=== PATIENT | female | born 1960 | race Hispanic/Latino ===

== ENCOUNTER 2021-10-23 10:57 | Emergency (ER) | payer SELFPAY ==
--- OUTSIDE RECORDS SUMMARY | 2021-10-23 11:01 | XMS REPORT | Continuity of Care Document ---
:1960 Author Organization [facility] t Address [address] [place] [address] Care Team Providers Name Role Phone PCP, PATIENT DOES NOT HAVE A Primary Care Physician UnavailHermelindo Lee DO Attending Clinician Farheen FERNANDEZ R Attending Clinician Zuleima PORTILLO Attending Clinician Unavailable Doctor Unassigned, Name Attending Clinician Unavailable Severo CATALAN Attending Clinician Unavailable Hossein QUIROZP, N Attending Clinician Severo CATALAN Admitting Clinician Unavailable Advance Directives Directive Decision Effective Termination Comments Source Date Date Healthcare Agents on N/A [facility] FileNameRelationshipHealthcare [facility] Agent Medical RelationshipCommunicationZoila Branch [facility] Care [phone] (Mobile) Sarah Dowell ContactFirst [facility] [phone] (Mobile) [email or web address] ToñitoChildSebal [facility] Care [phone] (Mobile) Problems Condition Condition Condition Status Onset Resolution Last Treating Co mments Source Name Details Category Date Date Treatment Clinician Date Class 1 Class 1 Disease Active 2019-08 Univers obesity obesity 1-23 [place] mass [place] mass index 00 [place] dical (BMI) of (BMI) of Branch 33.0 to 33.0 to 33.9 in 33.9 in adult, adult, unspecifie unspecifie d obesity d obesity type, type, unspecifie unspecifie d whether d whether serious serious comorbidit comorbidit y present y present Encounter Encounter Disease Active 2019-08 Uni vers for for 09-18 [place] of surve[place] ce of 00 Medical contracept contracept Br anch fidencio, fidencio, unspecifie unspecifie d d contracept contracept shalini shalini Postmenopa Postmenopa Disease Active U nivers use use 05-05 ity of 00:00: [place] 00 Medical Branch Essential Essential Disease Active Uni vers hypertensi hypertensi 3-15 it y of on, benign [place], benign [place] Encounter Encounter Disease Active 2013-08 Overview: Univers for other for other 09-04 ICD10 ity of general general 00:00: Diagnosis [place] counseling counseling 00 Term Me dical or advice or advice Family Caseworker Br anch on on Utility contracept contracept ion ion History of History of Disease Active 2013-08 U nivers depression depression 09-04 it y of 00:00: [place] 00 Medical Branch Obesity Obesity Disease Active Overview: Univ ers (BMI (BMI 8-14 ICD10 ity of 30-39.9) 30-39.9) 00:00: Diagnosis [place] 00 Term Medical Family Caseworker Branch Utility Tubal Tubal Disease Active Univers ligation ligation 8-13 ity of status status 00:00: [place] 00 Medical Branch Well woman Well woman Disease Active Overview : Univers exam (no exam (no 8-13 ICD10 ity of gynecologi gynecologi 00:00: Diagnosis [place] dasha exam) dasha exam) 00 Term Medi dasha Family Caseworker Branch Utility History of History of Disease Active U aleshia bilateral bilateral 8-13 ity of tubal tubal 00:00: [place] ligation ligation 00 Medica l Branch Well woman Well woman Disease Active Overview : Univers exam exam 8-13 ICD10 ity of 00:00: Diagnosis [place] 00 Term Medical Family Caseworker Branch Utility Allergies, Adverse Reactions, Alerts Allergy Allergy Status Severity Reaction(s) Onset Inactive Treating Comm ents Source Name Type Date Date Clinician NO KNOWN Drug Active Univers ALLERGIE Class ity of S [place] Medical [facility] Social History Social Habit Start Date Stop Date Quantity Comments Source Exposure to Not sure [facility] SARS-CoV-2 [place] Medical (event) Branch Tobacco use and 2020-08-31 2020-08-31 Never used Universit y of exposure 00:00:00 00:00:00 [facility] Branch Alcohol intake 2020-08-31 2020-08-31 Current University of 00:00:00 00:00:00 non-drinker of [facility] alcohol Branch (finding) Sex Ass[birth year] At [birth year] Universit y of 00:00:00 00:00:00 [facility] Smoking Status Start Date Stop Date Source Never smoker [facility] [place] Medications Ordered Filled Start Stop Current Ordering Indication Dosage Frequency Signature Comments Components Source Medication Medication Date Date Medication? Clinician (SIG) Name Name codeine-gua 2020-0 Yes [id number] 5mL Take 5 mL Univers ifenesin 1-03 by mouth ity of 10-100 mg/5 00:00: every 6 [place] as mL solution 00 (six) Medical hours as Branch needed for Cough. codeine-gua 2020-0 2020- No [id number] 5mL Take 5 mL Univers ifenesin 1-03 11-23 by mouth ity of 10-100 mg/5 00:00: 00:00 [place] 6 [place] mL solution 00 :00 (six) Medical hours as Branch needed for Cough. codeine-gua 2020-0 2020- No [id number] 5mL Take 5 mL Univers ifenesin 1-03 11-23 by mouth ity of 10-100 mg/5 00:00: 00:00 [place] 6 [place] mL solution 00 :00 (six) Medical hours as Branch needed for Cough. aspirin 325 2018- 2019- No 325mg Take 325 Univers mg tablet 05-05- mg by ity of 21:20: 00:00 mouth [place] 24 :00 daily. Medical Branch aspirin 325 2018- 2019- No 325mg Take 325 Univers mg tablet 05-05- mg by ity of 21:20: 00:00 mouth [place] 24 :00 daily. Medical Branch aspirin 325 2018- 2019- No 325mg Take 325 Univers mg tablet 05-05- mg by ity of 21:20: 00:00 mouth [place] 24 :00 daily. Medical Branch aspirin 325 2019- No 325mg Take 325 Univers mg tablet 05-05 mg by ity of 21:20: 00:00 mouth [place] 24 :00 daily. Medical Branch amLODIPine 2019- No 5mg Take 5 mg U nivers 5 mg tablet 05-05 by mouth ity of 21:20: 00:00 daily. [place] 21 :00 Medical Branch amLODIPine 2018- No 5mg Take 5 mg U nivers 5 mg tablet 05-05 by mouth ity of 21:20: 00:00 daily. [place] 21 :00 Medical Branch amLODIPine 2019- No 5mg Take 5 mg U nivers 5 mg tablet 05-05 by mouth ity of 21:20: 00:00 daily. [place] 21 :00 Medical Branch amLODIPine 2018- No 5mg Take 5 mg U nivers 5 mg tablet 05-05 by mouth ity of 21:20: 00:00 daily. [place] 21 :00 Medical Branch albuterol 2018- No USE 1 VIAL U nivers 2.5 mg /3 04-07 IN ity of mL (0.083 00:00: 00:00 [place]ULIZER [place] 00 :00 EVERY 8 Medical nebulizer HOURS Branch solution NEEDED albuterol 2018- No USE 1 VIAL U nivers 2.5 mg /3 04-07 IN ity of mL (0.083 00:00: 00:00 [place]IZER [place] 00 :00 EVERY 8 Medical nebulizer HOURS Branch solution NEEDED albuterol 2018- No USE 1 VIAL U nivers 2.5 mg /3 04-07 IN ity of mL (0.083 00:00: 00:00 [place]IZ[place] 00 :00 EVERY 8 Medical nebulizer HOURS Branch solution NEEDED albuterol 2018- No USE 1 VIAL U nivers 2.5 mg /3 04-07 IN ity of mL (0.083 00:00: 00:00 [place]IZER [place] 00 :00 EVERY 8 Medical nebulizer HOURS Branch solution NEEDED aspirin 325 2017- Yes 325mg Take 325 U nivers mg tablet 7-09 mg by ity of 16:35: mouth [place] 52 daily. Medical Branch amLODIPine 2017- Yes 5mg Take 5 mg Un shyann 5 mg tablet 7-09 by mouth ity of 16:35: daily. [place] 52 Medical Branch traMADOL Yes 50mg Take 1 Univers (ULTRAM) 50 9-16 tablet by ity of mg tablet 00:00: mouth [place] 00 every 6 Medical (six) Branch hours as needed for Pain (scale 4-6). traMADOL 2018- No 50mg Take 1 Univer s (ULTRAM) 50 05-12 tablet by it y of mg tablet 00:00: 00:00 mouth [place] 00 :00 every 6 Medical (six) Branch hours as needed for Pain (scale 4-6). traMADOL 2018- No 50mg Take 1 Univer s (ULTRAM) 50 05-12 tablet by it y of mg tablet 00:00: 00:00 mouth [place] 00 :00 every 6 Medical (six) Branch hours as needed for Pain (scale 4-6). traMADOL 2018- No 50mg Take 1 Univer s (ULTRAM) 50 05-12 tablet by it y of mg tablet 00:00: 00:00 mouth [place] 00 :00 every 6 Medical (six) Branch hours as needed for Pain (scale 4-6). traMADOL 2018- No 50mg Take 1 Univer s (ULTRAM) 50 05-12 tablet by it y of mg tablet 00:00: 00:00 mouth [place] 00 :00 every 6 Medical (six) Branch hours as needed for Pain (scale 4-6). No known No Univers medications [facility] No known No Univers medications [facility] Immunizations Ordered Filled Immunization Date Status Comments [facility] e Immunization Name Name Td 2009-10-28 Completed University of 00:00:00 [facility] Tdap 2009-10-28 Completed University of 00:00:00 [facility] Tdap 2009-10-28 Completed University of 00:00:00 [facility] Tdap 2009-10-28 Completed University of 00:00:00 [facility] Tdap 2009-10-28 Completed University of 00:00:00 [facility] TDAP 2009-10-28 Completed University of 00:00:00 [facility] TDAP 2009-10-28 Completed University of 00:00:00 [place] [facility] TDAP 2009-10-28 Completed University of 00:00:00 [place] [facility] TDAP 2009-10-28 Completed University of 00:00:00 [place] [facility] TDAP 2009-10-28 Completed University of 00:00:00 [facility] Vital Signs Vital Name Observation Time Observation Value Comments Source Systolic blood 2020-07-19 15:45:00 132 mm[Hg] Univer sity of pressure [facility] Diastolic blood 2020-07-19 15:45:00 74 mm[Hg] Unive rsity of pressure [facility] Heart rate 2020-07-19 15:45:00 56 /min Universi ty of [facility] Body temperature 2020-07-19 15:45:00 36.44 Amy Univ ersity of [facility] Respiratory rate 2020-07-19 15:45:00 16 /min Univ ersity of [facility] Body height 2020-07-19 15:45:00 157.5 cm Universi ty of [place] [facility] [place] Body weight 2020-07-19 15:45:00 82.101 kg Universi ty of [place] [facility] BMI 2020-07-19 15:45:00 33.11 kg/m2 Universi ty of [place] [facility] Systolic blood 2019-05-05 21:01:00 133 mm[Hg] Univer sity of pressure [place] [facility] Diastolic blood 2019-05-05 21:01:00 70 mm[Hg] Unive rsity of pressure [facility] Heart rate 2019-05-05 21:01:00 68 /min Universi ty of [place] [facility] [place] Body temperature 2019-05-05 21:01:00 36.22 Amy Univ ersity of [place] [facility] Respiratory rate 2019-05-05 21:01:00 16 /min Univ ersity of [facility] Body height 2019-05-05 21:01:00 157.5 cm Universi ty of [place] [facility] Body weight 2019-05-05 21:01:00 81.761 kg Universi ty of [place] [facility] BMI 2019-05-05 21:01:00 32.97 kg/m2 Universi ty of [place] [facility] Procedures Procedure Date / Time Performed Performing Clinician Sour e ASSIGNMENT OF BENEFITS 2020-07-19 15:05:35 Doctor Unassigned, No [facility] Name Medical Branch ASSIGNMENT OF BENEFITS 2019-05-05 20:29:32 Doctor Unassigned, No [facility] Encounters Start End Encounter Admission Attending Care Care Encounter Source Date/Time Date/Time Type Type Clinicians Facility Department ID 2020-11-06 2020-11-06 Patient Khang [facility] [id number] Univers 00:00:00 00:00:00 Outreach Patrick PRIMARY [id number] i ty of [facility] [id number] [place] [phone] Ak dical [address] [place] 2020-08-31 2020-08-31 [facility] [id number] Univers 06:39:30 23:59:00 Encounter Esteban Dewey SPECIALTY [id number] ity of [facility] [id number] [place] [id number] Ak dical VICTORY 8[address] [facility] 2020-08-31 2020-08-31 Outpatient Zuleima PORTILLO [facility] [id number] Univers 15:15:00 15:15:00 ESTEBAN [id number] itrishi o [facility] 2020-08-31 2020-08-31 Outpatient Zuleima PORTILLO [facility] [id number] Univers 00:00:00 00:00:00 ESTEBAN ity o f [facility] 2020-07-19 2020-07-19 [facility] [id number] Univers 09:29:07 10:20:55 Visit Esteban Dewey CASE WORK AIDE [id number] ity of REGIONAL [id number] [place] as MATERNAL [id number] Med ical & CHILD [address] [place] [address] 2020-07-19 2020-07-19 Outpatient Zuleima PORTILLO [facility] [id number] Univers 09:45:00 09:45:00 ESTEBAN ity o f [facility] 2020-07-19 2020-07-19 Outpatient R [facility] [id number] Univers 09:15:00 09:15:00 [id number] ity of [facility] 2020-07-19 2020-07-19 Outpatient R FARHEEN [facility] [id number] Univers 09:15:00 09:15:00 ESTEBAN dykes o f [facility] 2020-07-19 2020-07-19 Orders Doctor OTONIEL [id number] Univers 00:00:00 00:00:00 Only Unassigned, MARK [id number] ity of [facility] [id number] [place] [phone] [address] 2019-08-29 2019-08-29 Emergency [facility] [id number] Univers 13:54:14 15:19:00 LEIGHA dykes [facility] 2019-05-05 2019-05-05 Office [facility] [id number] Univers 15:51:30 16:06:30 Visit Effie Angulo CASE WORK AIDE [id number] it y of REGIONAL [id number] [place] MATERNAL [id number] Med ical & CHILD [address] [place] [address] 2019-05-05 2019-05-05 Orders Doctor OTONIEL [id number] Univers 00:00:00 00:00:00 Only Unassigned, MARK [id number] ity of [facility] [id number] [place] [phone] [address] Results This patient has no known results.
[2021-10-23] MEDS ORDERED: BENZONATATE 100 MG CAP PO ONE (11:25)
[2021-10-23] MEDS ORDERED: ACETAMINOPHEN 500 MG TAB ONE (11:25)
--- NOTE | 2021-10-23 11:55 | RAD REPORT ---
EXAM DESCRIPTION: RAD - Chest Single View - 10/23/2021 11:46 am CLINICAL HISTORY: cough sob COMPARISON: Chest Single View dated 09/28/2017 FINDINGS: Lines: None. Lungs: No evidence of edema or pneumonia. Pleural: No significant pleural effusions or pneumothorax. Cardiac: The heart size is within normal limits. Bones: No acute fractures. Other: IMPRESSION: No acute cardiopulmonary disease.
[2021-10-23 12:55] LABS: SARS-COV-2 RT PCR NEGATIVE (NEGATIVE)
--- NOTE | 2021-10-23 13:01 | ER ---
Nurse's Notes [facility] Name: Holly Leggett Age: 61 yrs Sex: Female : 1960 Arrival Date: 10/23/2021 Time: 11:00 Bed 6 Private MD: Diagnosis: Acute bronchitis, unspecified;Cough Presentation: 10/23 11:05 Chief complaint: Patient states: Cough and sore throat since last night. No fever. ll1 Coronavirus screen: Vaccine status: Patient reports receiving the 2nd dose of the covid vaccine. Client denies travel out of the [place] in the last 14 days. cough unrelated to allergies, sore throat, Client presents with at least one sign or symptom that may indicate coronavirus-19. Standard/surgical mask placed on the client. Ebola Screen: Patient denies travel to an Ebola-affected area in the 21 days before illness onset. Initial Sepsis Screen: Does the patient meet any 2 criteria? HR > 90 bpm. Yes Does the patient have a suspected source of infection? Yes: Productive cough/pneumonia. Risk Assessment: Do you want to hurt yourself or someone else? Patient reports no desire to harm self or others. Onset of symptoms was October 22, 2021. 11:05 Method Of Arrival: Ambulatory 1 11:05 Acuity: ANDRIY 4 ll1 Triage Assessment: 11:06 General: Appears in no apparent distress. Behavior is calm, cooperative, appropriate ll1 for age. Pain: Denies pain. EENT: Reports pain when swallowing. Neuro: No deficits noted. Cardiovascular: No deficits noted. Respiratory: Reports cough that is the patient has mild shortness of breath. Historical: - Allergies: 11:06 No Known Allergies; ll1 - PMHx: 11:06 Hypertension; ll1 - PSHx: 11:06 None; ll1 - Immunization history:: Client reports receiving the 2nd dose of the Covid vaccine. - Social history:: Smoking status: Patient denies any tobacco usage or history of. Screenin:25 Abuse screen: Denies threats or abuse. Denies injuries from another. Nutritional ph screening: No deficits noted. Tuberculosis screening: No symptoms or risk factors identified. Fall Risk None identified. Assessment: 11:25 General: Appears in no apparent distress. comfortable, well groomed, Behavior is calm, ph cooperative, appropriate for age, Reports fever for 12-24 hours. Pain: Complains of pain in throat. Neuro: Level of Consciousness is awake, alert, obeys commands, Oriented to person, place, time, situation. Cardiovascular: No deficits noted. Respiratory: Reports cough that is Airway is patent Respiratory effort is even, unlabored, Respiratory pattern is regular, symmetrical. GI: No signs and/or symptoms were reported involving the gastrointestinal system. EENT: Throat is reddened Reports nasal congestion pain when swallowing. Derm: Skin is intact, is healthy with good turgor, Skin is pink, warm \T\ dry. 12:30 Reassessment: Patient appears in no apparent distress at this time. No changes from ww previously documented assessment. Patient and/or family updated on plan of care and expected duration. Pain level reassessed. Patient is alert, oriented x 3, equal unlabored respirations, skin warm/dry/pink. 13:16 Respiratory: ww Vital Signs: 11:05 Weight 82.55 kg; Height 5 ft. 2 in. (157.48 cm); Pain 0/10; ll1 11:13 BP 172 / 88; Pulse 106; Resp 20; Temp 100.9; Pulse Ox 99% ; cs9 12:37 BP 160 / 80; Pulse 95; Resp 18; Temp 99.0; Pulse Ox 92% on R/A; ph 11:05 Body Mass Index 33.29 (82.55 kg, 157.48 cm) ll1 ED Course: 11:00 Patient arrived in ED. mr 11:05 Benigno Miller MD is Attending Physician. [id number] 11:05 Arm band placed on Patient placed in an exam room, on a stretcher. ll1 11:06 Triage completed. ll1 11:24 COVID-19/FLU A+B Sent. jmm 11:25 Patient has correct armband on for positive identification. Bed in low position. Call ph light in reach. Side rails up X 1. cloth bleaching range tender on. Pulse ox on. NIBP on. Door closed. Noise minimized. Warm blanket given. 11:46 Chest Single View In Process Unspecified. EDMS 12:36 Mansi Grace, RN is Primary Nurse. ph 12:46 No provider procedures requiring assistance completed. ph 13:16 Patient did not have IV access during this emergency room visit. ww Administered Medications: 11:24 Drug: Tylenol 1000 mg Route: PO; ph 12:37 Follow up: Response: No adverse reaction ph 11:25 Drug: Tessalon Perle (benzonatate) 200 mg Route: PO; ph 12:36 Follow up: Response: No adverse reaction ph Outcome: 13:00 Discharge ordered by MD. holland 13:15 Discharged to home ambulatory, with family. ww 13:15 Condition: stable 13:15 Discharge instructions given to patient, family, Instructed on discharge instructions, follow up and referral plans. medication usage, safety practices, Demonstrated understanding of instructions, follow-up care, medications, Prescriptions given X 2. 13:16 Patient left the ED. ww Signatures: Dispatcher [employer] EDMS Matthias Diane PA PA jmm Rivera, Kathy mr GraceMansi RN RN ph Lewis, Lynsay, RN RN ll1 Mai Maurer Whitney, RN RN ww Benigno Miller MD MD [email or web address] Corrections: (The following items were deleted from the chart) 11:22 11:05 Ebola Screen: Patient denies travel to an Ebola-affected area in the 21 days ll1 before illness onset. 1 11:22 11:05 Initial Sepsis Screen: Does the patient meet any 2 criteria? No. Patient's ll1 initial sepsis screen is negative. Does the patient have a suspected source of infection? Yes: Productive cough/pneumonia 1
--- NOTE | 2021-10-23 13:01 | EDPHYS ---
Physician Documentation [facility] Name: Holly Leggett Age: 61 yrs Sex: Female : 1960 Arrival Date: 10/23/2021 Time: 11:00 Bed 6 Private MD: ED Physician Benigno Miller HPI: 10/23 11:43 This 61 yrs old Female presents to ER via Ambulatory with complaints of Cough, jr11 Sore Throat. 11:43 The patient or guardian reports cough, that is intermittent, described as moderate. jr11 Onset: The symptoms/episode began/occurred yesterday. Severity of symptoms: At their worst the symptoms were moderate, in the emergency department the symptoms are actually worse. Modifying factors: The symptoms are alleviated by nothing, the symptoms are aggravated by exertion. Associated signs and symptoms: Pertinent positives: fever, rhinorrhea, sore throat, Pertinent negatives: chest pain. no urinary complaints, no changes in BMs. Historical: - Allergies: 11:06 No Known Allergies; ll1 - PMHx: 11:06 Hypertension; ll1 - PSHx: 11:06 None; ll1 - Immunization history:: Client reports receiving the 2nd dose of the Covid vaccine. - Social history:: Smoking status: Patient denies any tobacco usage or history of. ROS: 11:43 Eyes: Negative for injury, pain, redness, and discharge, Neck: Negative for injury, jr11 pain, and swelling, Cardiovascular: Negative for chest pain, palpitations, and edema, Abdomen/GI: Negative for abdominal pain, nausea, vomiting Back: Negative for injury and pain, : Negative for injury, bleeding, discharge, and swelling, MS/Extremity: Negative for injury and deformity, Skin: Negative for injury, rash, and discoloration, Neuro: Negative for headache, weakness, numbness, tingling, and seizure. 11:43 All other systems are negative. Exam: 11:43 Constitutional: This is a well developed, well nourished patient who is awake, alert, jr11 and in no acute distress. Head/Face: Normocephalic, atraumatic. Eyes: Extra-ocular motions intact. Lids and lashes normal. Conjunctiva and sclera are non-icteric and not injected. Cornea within normal limits. Periorbital areas with no swelling, redness, or edema. Neck: Trachea midline, no thyromegaly or masses palpated, and no cervical lymphadenopathy. Supple, full range of motion without nuchal rigidity, or vertebral point tenderness. No Meningismus. Chest/axilla: Normal chest wall appearance and motion. Nontender with no deformity. No lesions are appreciated. Cardiovascular: Regular rate and rhythm with a normal S1 and S2. No gallops, murmurs, or rubs. Normal PMI, no JVD. No pulse deficits. Respiratory: Lungs have equal breath sounds bilaterally, clear to auscultation and percussion. No rales, rhonchi or wheezes noted. No increased work of breathing, no retractions or nasal flaring. Abdomen/GI: Soft, non-tender, with normal bowel sounds. No distension or tympany. No guarding or rebound. No evidence of tenderness throughout. Skin: Warm, dry with normal turgor. Normal color with no rashes, no lesions, and no evidence of cellulitis. MS/ Extremity: Pulses equal, no cyanosis. Neurovascular intact. Full, normal range of motion. Neuro: Awake and alert, GCS 15, oriented to person, place, time, and situation. No gross motor or sensory deficits. 11:43 ENT: +posterior drip, boggy nasal mucosa. Vital Signs: 11:05 Weight 82.55 kg; Height 5 ft. 2 in. (157.48 cm); Pain 0/10; ll1 11:13 BP 172 / 88; Pulse 106; Resp 20; Temp 100.9; Pulse Ox 99% ; cs9 12:37 BP 160 / 80; Pulse 95; Resp 18; Temp 99.0; Pulse Ox 92% on R/A; ph 11:05 Body Mass Index 33.29 (82.55 kg, 157.48 cm) ll1 MDM: 11:15 Patient medically screened. jr11 11:43 Differential Diagnosis: Bronchitis Upper Respiratory Infection Pharyngitis Viral jr11 Syndrome Pneumonia. Data reviewed: vital signs, nurses notes, radiologic studies, plain films. 12:59 ED course: No distress, given productive cough concern for atypical PNA, bronchitis, jr11 will rx azithro and tessalon, ER warnings given. 10/23 11:17 Order name: COVID-19/FLU A+B; Complete Time: 12:56 EDMS 10/23 12:56 Interpretation: Within normal limits. jr11 10/23 11:17 Order name: Chest Single View; Complete Time: 12:32 EDMS Administered Medications: 11:24 Drug: Tylenol 1000 mg Route: PO; ph 12:37 Follow up: Response: No adverse reaction ph 11:25 Drug: Tessalon Perle (benzonatate) 200 mg Route: PO; ph 12:36 Follow up: Response: No adverse reaction ph Disposition Summary: 10/23/21 13:00 Discharge Ordered Location: Home jr Condition: Stable jr11 Diagnosis - Acute bronchitis, unspecified jr11 - Cough jr11 Followup: jr11 - With: Private Physician - When: 1 - 2 days - Reason: Re-evaluation by your physician Discharge Instructions: - Discharge Summary Sheet jr11 - Acute Bronchitis, Adult jr11 Forms: - Medication Reconciliation Form jr11 - Work release form ww - Thank You Letter jr11 - Antibiotic Education jr11 - Prescription Opioid Use jr11 Prescriptions: - Tessalon Perles 100 mg Oral Capsule - take 1 capsule by ORAL route every 8 hours As needed; 15 capsule; Refills: 0, jr11 Product Selection Permitted - Zithromax Z-Karl 250 mg Oral Tablet - take 1 tablet by ORAL route as directed for 5 days Day 1 - take two (2) tablets jr11 one time. Day 2, 3, 4 , 5 take one (1) tablet once daily.; 6 tablet; Refills: 0, Product Selection Permitted Signatures: Dispatcher [employer] Mansi Bobby RN RN ph Lewis, Lynsay, RN RN ll1 Benigno Miller MD MD jr11
== END 2021-10-23 13:16 | disposition home or self-care (01) ==
LOC: ER 10:57
DX: J20.9 Acute bronchitis, unspecified (principal); Z20.822 Contact with and (suspected) exposure to COVID-19; I10 Essential (primary) hypertension
CPT/HCPCS: 0240U; 71045; 99284

== ENCOUNTER 2022-01-18 13:40 | Inpatient (IN) | payer SELFPAY ==
--- OUTSIDE RECORDS SUMMARY | 2022-01-18 13:43 | XMS REPORT | Continuity of Care Document ---
:1960 Author Organization [facility] t Address [address] [place] [address] Care Team Providers Name Role Phone PCP, PATIENT DOES NOT HAVE A Primary Care Physician Unavaila Hermelindo Deal DO Attending Clinician Farheen FERNANDEZ R Attending Clinician Zuleima ZHONG Attending Clinician Unavailable Doctor Unassigned, Name Attending Clinician Unavailable Severo CATALAN Attending Clinician Unavailable Hossein FERNANDEZ, N Attending Clinician Severo CATALAN Admitting Clinician Unavailable Problems Condition Condition Condition Status Onset Resolution Last Treating Co mments Source Name Details Category Date Date Treatment Clinician Date Class 1 Class 1 Disease Active 2019-08 Univers obesity obesity 09-18 ity of with body with body 00:00: [...] [place] ce of Medical contracept contracept Br anch fidencio, fidencio, [...] Term Me dical or advice or advice [place] Br anch on on Utility contracept contracept ion ion History of History of Disease Active 2013-08 U nivers depression depression 09-04 it y of 00:00: [place] 00 Medical Branch Obesity Obesity Disease Active Overview: Univ ers (BMI (BMI 8-14 ICD10 ity of 30-39.9) 30-39.9) 00:00: Diagnosis [place] 00 Term Medical [place] Branch Utility Tubal Tubal Disease Active Univers ligation ligation 8-13 ity of status status 00:00: [place] 00 [facility] Well woman Well woman Disease Active Overview : Univers exam (no exam (no 8-13 ICD10 ity of gynecologi gynecologi 00:00: Diagnosis [place] dasha exam) dasha exam) 00 Term Medi dasha [place] Branch Utility History of History of Disease Active U nivers bilateral bilateral 8-13 ity of tubal tubal 00:00: [place] ligation ligation 00 Medica l Branch Well woman Well woman Disease Active Overview : Univers exam exam 8-13 ICD10 ity of 00:00: Diagnosis [place] 00 Term Medical [place] Branch Utility Allergies, Adverse Reactions, Alerts Allergy Allergy Status Severity Reaction(s) Onset Inactive Treating Comm ents Source Name Type Date Date Clinician NO KNOWN Drug Active Univers ALLERGIE Class ity of S [facility] Social History Social Habit Start Date Stop Date Quantity Comments Source Exposure to Not sure [facility] SARS-CoV-2 [place] Medical (event) Branch Tobacco use and 2020-08-31 2020-08-31 Never used Universit y of exposure 00:00:00 00:00:00 [facility] Alcohol intake 2020-08-31 2020-08-31 Current University of 00:00:00 00:00:00 non-drinker of [facility] alcohol Branch (finding) Sex Assigned At [birth year] Universit y of 00:00:00 00:00:00 [facility] Smoking Status Start Date Stop Date Source Never smoker [facility] Branch Medications Ordered Filled Start Stop Current Ordering Indication Dosage Frequency Signature Comments Components Source Medication Medication Date Date Medication? Clinician (SIG) Name Name tiffanie 2020-0 Yes [id number] 5mL Take 5 mL Univers ifenesin 1-03 by mouth ity of 10-100 mg/5 00:00: every 6 [place] as mL solution 00 (six) Medical hours as Branch needed for Cough. dreada 2020-0 2020- No [id number] 5mL Take 5 mL Univers ifenesin 1-03 11-23 by mouth ity of 10-100 mg/5 00:00[place] 00:00 [place] 6 [place] mL solution 00 :00 (six) Medical hours as Branch needed for Cough. dreada 2019-0 2020- No [id number] 5mL Take 5 mL Univers ifenesin 1-03 11-23 by mouth ity of 10-100 mg/5 00:00: 00:00 [place] 6 [place] mL solution 00 :00 (six) Medical hours as Branch needed for Cough. aspirin 325 2019- No 325mg Take 325 Univers mg tablet 05-05- mg by ity of 21:20: 00:00 mouth [place] 24 :00 daily. Medical Branch aspirin 325 2019- No 325mg Take 325 Univers mg tablet 05-05- mg by ity of 21:20: 00:00 mouth [place] 24 :00 daily. Medical Branch aspirin 325 2019- No 325mg Take 325 Univers mg tablet 05-05- mg by ity of 21:20: 00:00 [facility] 24 :00 daily. Medical Branch aspirin 325 2019- No 325mg Take 325 Univers mg tablet 05-05- mg by ity of 21:20: 00:00 mouth [place] 24 :00 daily. Medical Branch amLODIPine 2019- No 5mg Take 5 mg U nivers 5 mg tablet 05-05 by mouth ity of 21:20: 00:00 daily. [place] 21 :00 Medical Branch amLODIPine 2019- No 5mg Take 5 mg U nivers 5 mg tablet 05-05 by mouth ity of 21:20: 00:00 daily. [place] 21 :00 Medical Branch amLODIPine 2019-0 2019- No 5mg Take 5 mg U nivers 5 mg tablet 05-05 by mouth ity of 21:20: 00:00 daily. [place] 21 :00 Medical Branch amLODIPine 2018- No 5mg Take 5 mg U nivers 5 mg tablet 05-05 by mouth ity of 21:20: 00:00 daily. [place] 21 :00 Medical Branch albuterol 2018- No [...] nebulizer HOURS Branch solution NEEDED aspirin 325 Yes 325mg Take 325 U nivers mg tablet 7-09 mg by ity of 16:35: mouth [place] [address] daily. Medical Branch amLODIPine Yes 5mg Take 5 mg Un shyann 5 mg tablet -09 by mouth ity of 16:35: daily. [place] 52 Medical Branch traMADOL Yes 50mg Take 1 Univers (ULTRAM) 50 9-16 tablet by ity of mg tablet 00:00: mouth [place] 00 every 6 Medical (six) Branch hours as needed for Pain (scale 4-6). traMADOL 2019- No 50mg Take 1 Univer s (ULTRAM) 50 9-12 05- tablet by it y of mg tablet [...] it y of mg tablet 00:00: 00:00 [facility] [place] 00 :00 every 6 Medical (six) Branch hours as needed for Pain (scale 4-6). No known No Univers medications [facility] No known No Univers medications [facility] Immunizations Ordered Filled Immunization Date Status Comments [facility] e Immunization Name Name [facility] 2009-10-28 Completed University of 00:00:00 [facility] Tdap 2009-10-28 Completed University of 00:00:00 [facility] Tdap 2009-10-28 Completed University of 00:00:00 [facility] Tdap 2009-10-28 Completed University of 00:00:00 [facility] Tdap 2009-10-28 Completed University of 00:00:00 [facility] TDAP 2009-10-28 Completed University of 00:00:00 [facility] TDAP 2009-10-28 Completed University of 00:00:00 [facility] TDAP 2009-10-28 Completed University of 00:00:00 [facility] TDAP 2009-10-28 Completed University of 00:00:00 [facility] TDAP 2009-10-28 Completed University of 00:00:00 [facility] Vital Signs Vital Name Observation Time Observation Value Comments Source Systolic blood 2020-07-19 15:45:00 132 mm[Hg] Univer sity of pressure [facility] Diastolic blood 2020-07-19 15:45:00 74 mm[Hg] Unive rsity of pressure [facility] Heart rate 2020-07-19 15:45:00 56 /min Universi ty of [facility] Body temperature 2020-07-19 15:45:00 36.44 Amy [facility] ersity [facility] Respiratory rate 2020-07-19 15:45:00 16 /min Univ ersity [facility] Body height 2020-07-19 15:45:00 157.5 cm Universi ty of [facility] Body weight 2020-07-19 15:45:00 82.101 kg Universi ty of [facility] BMI 2020-07-19 15:45:00 33.11 kg/m2 Universi ty of [facility] Systolic blood 2019-05-05 21:01:00 133 mm[Hg] Univer sity of pressure [facility] Diastolic blood 2019-05-05 21:01:00 70 mm[Hg] Unive rsity of pressure [facility] Heart rate 2019-05-05 21:01:00 68 /min Universi ty of [facility] Body temperature 2019-05-05 21:01:00 36.22 Amy [place] [facility] ersity [facility] Respiratory rate 2019-05-05 21:01:00 16 /min Univ ersity [facility] Body height 2019-05-05 21:01:00 157.5 cm Universi ty of [facility] Body weight 2019-05-05 21:01:00 81.761 kg Universi ty of [facility] BMI 2019-05-05 21:01:00 32.97 kg/m2 Universi ty of [facility] Procedures Procedure Date / Time Performed Performing Clinician [facility] e ASSIGNMENT OF BENEFITS 2020-07-19 15:05:35 Doctor Unassigned, No [facility] Branch ASSIGNMENT OF BENEFITS 2019-05-05 20:29:32 Doctor Unassigned, No General acute hospital Encounters Start End Encounter Admission Attending Care Care Encounter Source Date/Time Date/Time Type Type Clinicians Facility Department ID 2020-11-06 2020-11-06 Patient Khang KSSANTANA [id number] Univers 00:00:00 00:00:00 Outreach Patrick PRIMARY [id number] i ty of [facility] [id number] Marvin ORTEGA [phone] Mo dical 388 Branch 2020-08-31 2020-08-31 [facility] Farheen [facility] [id number] Univers 06:39:30 23:59:00 Encounter Esteban Dewey SPECIALTY [id number] ity of [facility] [id number] [place] [phone] Mo shanta GALLEGOS 8[address] [facility] 2020-08-31 2020-08-31 [id number] Univers 15:15:00 15:15:00 ESTEBAN [id number] ity o f [facility] 2020-08-31 2020-08-31 [facility] [id number] Univers 00:00:00 00:00:00 ESTEBAN dykes o [facility] 2020-07-19 2020-07-19 [facility] [id number] Univers 09:29:07 10:20:55 Visit 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 [id number] ity of REGIONAL [id number] [place] as MATERNAL [phone] Med ical & CHILD [address] [place] [address] 2020-07-19 2020-07-19 [facility] [id number] Univers 09:45:00 09:45:00 ESTEBAN dykes o [facility] 2020-07-19 2020-07-19 Outpatient R [facility] [id number] Univers 09:15:00 09:15:00 [id number] ity of [facility] 2020-07-19 2020-07-19 [facility] [id number] Univers 09:15:00 09:15:00 EVERMICAH dykes o [facility] 2020-07-19 2020-07-19 Orders Doctor OTONIEL [id number] Univers 00:00:00 00:00:00 Only Unassigned, MARK [id number] ity of [place] [facility] [id number] [place] [id number] [address] 2019-08-29 2019-08-29 Emergency X [facility] ERT [id number] Univers 13:54:14 15:19:00 LEIGHA dykes of [facility] 2019-05-05 2019-05-05 Office Hossein [facility] [id number] Univers 15:51:30 16:06:30 Visit Effie Angulo 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
[2022-01-18 14:42] LABS: Protime INR 0.96
[2022-01-18] MEDS ORDERED: ASPIRIN 81 MG CHEWABLE TABLET ONE (14:48)
[2022-01-18 15:18] LABS: Absolute Lymphocytes (CBC) 3.4 K/uL (0.7-4.9); Lymphocytes % 30.7 % (15.3-44.8); MPV 9.3 fL (7.6-11.3); RBC Red Blood Cell Count 4.94 M/uL (3.86-4.86)
[2022-01-18 15:21] LABS: ALT/SGPT 44 U/L (12-78); AST/SGOT 22 U/L (15-37); Albumin 3.8 g/dL (3.4-5.0); Alkaline Phosphatase 117 U/L (45-117); BUN Blood Urea Nitrogen 19 mg/dL (7-18); Bicarbonate 29 mmol/L (21-32); Bilirubin Total 0.2 mg/dL (0.2-1.0); Glomerular Filtration Rate 82 ml/min (=/>90); Glucose Level 114 mg/dL (74-106); Magnesium 2.2 mg/dL (1.8-2.4); Potassium 3.9 mmol/L (3.5-5.1); Protein, Total 7.9 g/dL (6.4-8.2); Sodium Level 142 mmol/L (136-145)
[2022-01-18 15:26] LABS: Bilirubin Direct < 0.1 mg/dL (0-0.2)
[2022-01-18 15:27] LABS: Troponin High Sensitivity 153.1 pg/mL (<58.9)
[2022-01-18 15:58] LABS: NT PRO-BNP 44 pg/mL (<125)
[2022-01-18] MEDS ORDERED: HYDROCODONE/APAP 5/325 MG TAB PO PRN (16:00)
--- NOTE | 2022-01-18 16:04 | EDPHYS ---
Physician Documentation [facility] Name: Holly Leggett Age: 61 yrs Sex: Female : 1960 Arrival Date: 01/18/2022 Time: 13:42 Bed 6 Private MD: ED Physician Patricio Vance HPI: 01/18 14:08 This 61 yrs old Female presents to ER via Unassigned with complaints of Chest jmm Pain, Locked Jaw. 14:08 The patient or guardian reports chest pain that is located primarily in the substernal jmm area. Onset: acutely, 1.5 hour(s) ago. The pain radiates to Associated signs and symptoms: Pertinent negatives: abdominal pain, cough, dizziness, lightheadedness, near syncope, palpitations. The chest pain is described as aching. Duration: The patient or guardian reports a single episode, that is still ongoing. Modifying factors: The symptoms are alleviated by nothing. the symptoms are aggravated by nothing. Historical: - Allergies: 14:12 No Known Allergies; iw - Home Meds: 14:12 None [Active]; iw - PMHx: 14:12 Hypertension; iw - Immunization history:: Adult Immunizations up to date. - Social history:: Smoking status: Patient denies any tobacco usage or history of. ROS: 14:08 Constitutional: Negative for fever, chills, and weight loss, Respiratory: Negative for jmm shortness of breath, cough, wheezing, and pleuritic chest pain. 14:08 Cardiovascular: Positive for chest pain. 14:08 All other systems are negative. Exam: 14:08 Constitutional: This is a well developed, well nourished patient who is awake, alert, jmm and in no acute distress. Head/Face: atraumatic. Eyes: EOMI, no conjunctival erythema appreciated ENT: Moist Mucus Membranes Neck: Trachea midline, Supple Chest/axilla: Normal chest wall appearance and motion. Cardiovascular: Regular rate and rhythm. No edema appreciated Respiratory: Normal respirations, no respiratory distress appreciated Abdomen/GI: Non distended, soft Back: Normal ROM Skin: General appearance color normal 14:08 Musculoskeletal/extremity: ROM: intact in all extremities. 14:08 Skin: Appearance: Color: normal in color. 14:08 Neuro: Orientation: is normal, Mentation: is normal, Memory: is normal. 14:08 Psych: Behavior/mood is pleasant, cooperative. Vital Signs: 14:11 BP 129 / 50; Pulse 77; Resp 16; Temp 97.6; Pulse Ox 96% on R/A; iw 15:45 BP 148 / 80; Pulse 67; Resp 16; ll1 16:44 Weight 81 kg; ll1 20:13 BP 153 / 67; Pulse 59; Resp 22; Pulse Ox 100% on R/A; sm5 MDM: 14:07 Patient medically screened. [facility] 16:03 The patient was given aspirin in the Emergency Department. Data reviewed: vital signs, [facility] nurses notes. Counseling: I had a detailed discussion with the patient and/or guardian regarding: the historical points, exam findings, and any diagnostic results supporting the discharge/admit diagnosis, lab results, the need for further work-up and treatment in the hospital. 01/18 14:07 Order name: Basic Metabolic Panel; Complete Time: 16:02 [facility] 01/18 14:07 Order name: CBC with Diff; Complete Time: 15:27 [facility] 01/18 14:07 Order name: LFT's; Complete Time: 16:02 [facility] 01/18 14:07 Order name: Magnesium; Complete Time: 16:02 [facility] 01/18 14:07 Order name: NT PRO-BNP; Complete Time: 16:02 [facility] 01/18 14:07 Order name: PT-INR; Complete Time: 14:43 [facility] 01/18 14:07 Order name: Troponin HS; Complete Time: 16:02 [facility] 01/18 15:31 Order name: COVID-19 SARS RT PCR (Document "Date of Onset" if Symptomatic); Complete bd Time: 18:02 01/18 16:03 Order name: Troponin High Sensitivity [facility] 01/18 16:03 Order name: Troponin High Sensitivity; Complete Time: 18:22 [facility] 01/18 16:03 Order name: Troponin High Sensitivity [facility] 01/18 16:03 Order name: Troponin High Sensitivity [facility] 01/18 17:46 Order name: Lipid Profile; Complete Time: 17:48 [facility] 01/18 17:53 Order name: T4 Free; Complete Time: 18:02 [facility] 01/18 14:07 Order name: XRAY Chest (1 view); Complete Time: 16:11 [facility] 01/18 14:07 Order name: EKG; Complete Time: 14:08 [facility] 01/18 14:07 Order name: Cardiac monitoring; Complete Time: 14:27 [facility] 01/18 14:07 Order name: EKG - Nurse/Tech; Complete Time: 14:26 [facility] 01/18 14:07 Order name: IV Saline Lock; Complete Time: 14:26 [facility] 01/18 14:07 Order name: Labs collected and sent; Complete Time: 14:26 [facility] 01/18 14:07 Order name: O2 Per Protocol; Complete Time: 14:26 [facility] 01/18 14:07 Order name: O2 Sat Monitoring; Complete Time: 14:27 [facility] 01/18 16:06 Order name: Echo with Doppler [facility] 01/18 17:53 Order name: Thyroid Stimulating Hormone; Complete Time: 18:02 [facility] 01/18 19:02 Order name: Hemoglobin A1c; Complete Time: 19:05 [facility] 01/18 14:45 Order name: Labs - recollect needed: recollect lavender and blue top; Complete Time: bd 15:07 Administered Medications: 15:07 Drug: Aspirin Chewable Tablet 324 mg Route: PO; iw 16:49 Follow up: Response: No adverse reaction ll1 17:03 Drug: Heparin (WA-Bolus No thrombolytic) - HEParin 60 units/kg {Co-Signature: iw (Kristin Pak RN).} Route: IVP; Site: left antecubital; 18:19 Follow up: Response: No adverse reaction ll1 17:03 Drug: Heparin (WA Drip) 12 units/kg/hr - (HEParin 22449 units, D5W 500 ml) ll1 {Co-Signature: ss (Ana Gupta RN).} Route: IV; Rate: calculated rate; Site: left antecubital; 20:14 Follow up: IV Status: Infusion continued upon admission sm5 17:15 Drug: Metoprolol 25 mg Route: PO; ll1 18:19 Follow up: Response: No adverse reaction ll1 18:56 Drug: Atorvastatin 40 mg Route: PO; ll1 20:15 Follow up: Response: No adverse reaction sm5 Disposition Summary: 01/18/22 16:04 Hospitalization Ordered Hospitalization Status: Inpatient Admission [facility] Provider: Yoan Vance Location: Telemetry/MedSurg (observation) jmm Condition: Stable jmm Problem: new jmm Symptoms: are unchanged jmm Bed/Room Type: Standard m Room Assignment: 207(01/18/22 19:44) cg Diagnosis - Non ST elevation [place] jmm Forms: - Medication Reconciliation Form jmm - SBAR form jmm Addendum: 01/20/2022 06:59 Co-signature as Attending Physician, Patricio Vance MD. r n Signatures: Dispatcher [employer] EDShyann Tony Joel, PA PA ximenam Kristin Pak, RN ROS iw Patricio Vance MD MD rn Lon Alvarado, SUPERVISOR TELEPHONE CLERKS-C SUPERVISOR TELEPHONE CLERKS-Cla1 Kaylynn Maravilla RN RN cg Travis Pratt RN RN 1 Karen Hollingsworth RN 5 Kristin Pak RN Ana Gupta RN ss Corrections: (The following items were deleted from the chart) 01/18 19:44 16:04 jmm cg
--- NOTE | 2022-01-18 16:04 | ER ---
Nurse's Notes [facility] Name: Holly Leggett Age: 61 yrs Sex: Female : 1960 Arrival Date: 01/18/2022 Time: 13:42 Bed 6 Private MD: Diagnosis: Non ST elevation [place] Presentation: 01/18 14:11 Chief complaint: Patient states: mid sternal chest pain started at 1230 today, feels iw like burning pain up into her jaw and her throat. Coronavirus screen: At this time, the client does not indicate any symptoms associated with coronavirus-19. Ebola Screen: Patient negative for fever greater than or equal to 101.5 degrees Fahrenheit, and additional compatible Ebola Virus Disease symptoms Patient denies exposure to infectious person. Patient denies travel to an Ebola-affected area in the 21 days before illness onset. No symptoms or risks identified at this time. Initial Sepsis Screen: Does the patient meet any 2 criteria? No. Patient's initial sepsis screen is negative. Does the patient have a suspected source of infection? No. Patient's initial sepsis screen is negative. Risk Assessment: Do you want to hurt yourself or someone else? Patient reports no desire to harm self or others. Onset of symptoms was January 18, 2022. 14:11 Acuity: ANDRIY 3 iw 14:11 Method Of Arrival: Ambulatory iw Historical: - Allergies: 14:12 No Known Allergies; iw - Home Meds: 14:12 None [Active]; iw - PMHx: 14:12 Hypertension; iw - Immunization history:: Adult Immunizations up to date. - Social history:: Smoking status: Patient denies any tobacco usage or history of. Screenin:33 Abuse screen: Denies threats or abuse. Nutritional screening: No deficits noted. ll1 Tuberculosis screening: No symptoms or risk factors identified. Fall Risk IV access (20 points). Total Hardy Fall Scale indicates No Risk (0-24 pts). Assessment: 15:34 General: Appears in no apparent distress. Behavior is calm, cooperative, appropriate ll1 for age. Pain: Complains of pain in chest Pain radiates to neck/jaw Pain began 3 hours ago. Neuro: No deficits noted. Cardiovascular: Reports chest pain. 15:44 EENT: Reports pain burning pain to throat area. ll1 15:46 Reassessment: No changes from previously documented assessment. Patient and/or family ll1 updated on plan of care and expected duration. Pain level reassessed. Patient is alert, oriented x 3, equal unlabored respirations, skin warm/dry/pink. Vital Signs: 14:11 BP 129 / 50; Pulse 77; Resp 16; Temp 97.6; Pulse Ox 96% on R/A; iw 15:45 BP 148 / 80; Pulse 67; Resp 16; ll1 16:44 Weight 81 kg; ll1 20:13 BP 153 / 67; Pulse 59; Resp 22; Pulse Ox 100% on R/A; 5 ED Course: 13:42 Patient arrived in ED. mr 14:05 Matthias Diane PA is PHCP. jmm 14:05 Patricio Vance MD is Attending Physician. jmm 14:12 Triage completed. iw 14:12 Arm band placed on. EKG completed in triage. Results shown to MD. iw 14:25 Initial lab(s) drawn, by me, sent to lab. EKG done, by ED staff, reviewed by Patricio Vance MD. Inserted saline lock: 22 gauge in left forearm, using aseptic technique. Blood collected. 14:26 Basic Metabolic Panel Sent. 5 14:26 CBC with Diff Sent. [facility] 14:26 LFT's Sent. [facility] 14:27 Magnesium Sent. [facility] 14:27 NT PRO-BNP Sent. [facility] 14:27 PT-INR Sent. [facility] 14:27 Troponin HS Sent. 5 15:33 Travis Pratt, RN is Primary Nurse. ll1 15:33 Patient placed in an exam room, on a stretcher. ll1 15:34 Patient has correct armband on for positive identification. Bed in low position. Call ll1 light in reach. Side rails up X2. Client placed on continuous cardiac and pulse oximetry monitoring. NIBP monitoring applied. 15:35 Patient maintains SpO2 saturation greater than 95% on room air. 1 15:51 NT PRO-BNP Sent. 5 16:00 XRAY Chest (1 view) In Process Unspecified. EDMS 16:03 Yoan Vance MD is Hospitalizing Provider. jmm 20:11 No provider procedures requiring assistance completed. Patient admitted, IV remains in [address] Administered Medications: 15:07 Drug: Aspirin Chewable Tablet 324 mg Route: PO; iw 16:49 Follow up: Response: No adverse reaction ll1 17:03 Drug: Heparin (KS-Bolus No thrombolytic) - HEParin 60 units/kg {Co-Signature: iw (Kristin Pak RN).} Route: IVP; Site: left antecubital; 18:19 Follow up: Response: No adverse reaction ll1 17:03 Drug: Heparin (KS Drip) 12 units/kg/hr - (HEParin 47541 units, D5W 500 ml) ll1 {Co-Signature: ss (Ana Gupta RN).} Route: IV; Rate: calculated rate; Site: left antecubital; 20:14 Follow up: IV Status: Infusion continued upon admission [facility] 17:15 Drug: Metoprolol 25 mg Route: PO; 1 18:19 Follow up: Response: No adverse reaction ll1 18:56 Drug: Atorvastatin 40 mg Route: PO; ll1 20:15 Follow up: Response: No adverse reaction [facility] Medication: 15:34 VIS not applicable for this client. 1 Outcome: 16:04 Decision to Hospitalize by Provider. charlie 20:11 Admitted to Med/surg accompanied by tech, via stretcher, with chart. [facility] 20:11 Condition: stable 20:11 Instructed on the need for admit. 20:15 Patient left the ED. [facility] Signatures: Dispatcher [employer] EDMS Matthias Diane PA PA jmm CaldwellKathy chun mr Kristin Pak RN RN iw Martinez, Maria [facility] Travis Pratt RN RN 1 Karen Hollingsworth RN RN [facility] Kristin Gupta RN ss Corrections: (The following items were deleted from the chart) 15:45 15:34 Neuro: No deficits noted. ll1 ll1
[2022-01-18] MEDS ORDERED: ALBUTEROL 2.5 MG/3 ML NEB SOL NEB PRN (16:05)
[2022-01-18] MEDS ORDERED: ONDANSETRON 4 MG/2 ML VIAL IV PRN (16:05)
[2022-01-18] MEDS ORDERED: IPRATROPIUM BROM 0.5MG/2.5ML NEB PRN (16:05)
[2022-01-18] MEDS ORDERED: ACETAMINOPHEN 500 MG TAB PO PRN (16:05)
--- NOTE | 2022-01-18 16:05 | RAD REPORT ---
EXAM DESCRIPTION: RAD - Chest Single View - 01/18/2022 4:00 pm CLINICAL HISTORY: CHEST PAIN Chest pain. COMPARISON: Chest Single View dated 10/23/2021; Chest Single View dated 09/28/2017 FINDINGS: Portable technique limits examination quality. The lungs are grossly clear. The heart is normal in size. No displaced fractures. IMPRESSION: No acute intrathoracic process suspected.
[2022-01-18] MEDS ORDERED: HYDRALAZINE HCL 20 MG/ML VIAL IV PRN (16:30)
--- NOTE | 2022-01-18 16:32 | P.HP ---
Certification for Inpatient Patient admitted to: Inpatient With expected LOS: >2 Midnights Patient will require the following post-hospital care: None Practitioner: I am a practitioner with admitting privileges, knowledge of patient current condition, hospital course, and medical plan of care. Services: Services provided to patient in accordance with Admission requirements found in Title 42 Section 412.3 of the Code of Federal Regulations Patient History Date of Service: 01/18/22 Reason for admission: Chest pain History of Present Illness: Patient is a 61-year-old female with a past medical history significant for hypertension and Obesity who presents with complaint of chest pain onset today while patient was at work. Patient indicated that she initially started having jaw pain accompanied by a burning sensation in her throat. Patient reported that 10 minutes later she started having chest pain located in the substernal chest area. Patient rated pain as 10/10 in severity and described pain as pressure in quality. Patient indicated that chest pain radiates to the sides of her rib cage. Patient reports associated signs and symptoms of bilateral fingers numbness\tingling and shortness of breath. Patient denies any other signs and symptoms. Symptoms are aggravated or relieved by nothing. Patient decided to present to the hospital for medical evaluation. Allergies No Known Allergies Allergy (Unverified 09/28/17 18:15) Home medications list reviewed: Yes - Past Medical/Surgical History Diabetic: No -: HTN -: Obesity Past Surgical History: Reviewed- Non-Contributory - Family History Father -: Heart disease, Other (see notes) (Father of Heart Attack ) Mother -: Diabetes - Social History Smoking Status: Never smoker Alcohol use: No CD- Drugs: No Caffeine use: No Place of Residence: Home Review of Systems General: Unremarkable Eyes: Unremarkable ENT: Throat Pain, Other (Jaw pain ) Respiratory: Shortness of Breath Cardiovascular: Chest Pain Gastrointestinal: Unremarkable Genitourinary: Unremarkable Musculoskeletal: Unremarkable Integumentary: Unremarkable Neurological: Numbness, Other (Cristian fingers tingling\numbness ) Lymphatics: Unremarkable Physical Examination - Physical Exam General: Alert, Oriented x3, Cooperative HEENT: Normocephalic, PERRLA Neck: Supple, 2+ carotid pulse no bruit, JVD not distended Respiratory: Clear to auscultation bilaterally, Normal air movement Cardiovascular: Normal pulses, Regular rate/rhythm, Normal S1 S2 Capillary refill: <2 Seconds Gastrointestinal: Normal bowel sounds, Soft and benign Musculoskeletal: No clubbing, No swelling, No contractures, No erythema Integumentary: No rashes, No breakdown, No significant lesion, No erythema Neurological: Normal gait, Normal speech, Normal tone, Normal affect Lymphatics: No axilla or inguinal lymphadenopathy - Studies Laboratory Data (last 24 hrs) 01/18/22 15:06: WBC 11.0 H, Hgb 14.6, Hct 43.0, Plt Count 371 01/18/22 14:21: PT 10.5, INR 0.96 01/18/22 14:21: Sodium 142, Potassium 3.9, BUN 19 H, Creatinine 0.82, Glucose 114 H, Magnesium 2.2, Total Bilirubin 0.2, AST 22, ALT 44, Alkaline Phosphatase 117 Assessment and Plan - Plan --NSTEMI. Troponin elevated. We will continue to trend troponin levels. Echocardiogram pending to assess LV\valvular functions and wall motion. Cardiology consulted. Patient started on heparin drip. Telemetry to monitor for any significant arrhythmia. Patient placed on aspirin and statin. We will await further recommendation from residential therapist. --Acute pain. We will manage pain with current pain medication regimen. --Hypertension. Patient reports that she does not take any medication at home. We will manage BP with hydralazine as needed. --Paresthesias of Skin. Continue supportive care. --Mild leukocytosis. Likely reactive. Will reassess levels in a.m. --CKD 2. Baseline functions unknown. We will continue to monitor renal functions. --Obesity. Likely secondary to excess calories intake. Patient counseled on Weight Reduction, Diet and Exercise Therapy. --DVT prophylaxis with heparin drip. Discharge Plan: Home Plan to discharge in: Greater than 2 days - Advance Directives Does patient have a Living Will: No Does patient have a Durable POA for Healthcare: No - Code Status/Comfort Care Code Status Assessed: Yes Code Status: Full Code Physician Review: Patient Assessed, Agree with Above Assessment and Plan Critical Care: No
[2022-01-18] MEDS ORDERED: HEPARIN 5000 UNIT/ML 1 ML VIAL ONE (16:39)
[2022-01-18] MEDS ORDERED: HEPARIN/D5W 25,000 UNIT/500 ML BAG IV ONE (16:59)
[2022-01-18] MEDS ORDERED: HEPARIN/D5W 25,000 UNIT/500 ML BAG IV SCH (17:00)
[2022-01-18] MEDS ORDERED: METOPROLOL TAR 25 MG TAB ONE (17:13)
[2022-01-18 17:53] VITALS: BMI 31.6
[2022-01-18 17:53] LABS: Thyroid Stimulating Hormone 0.85 uIU/mL (0.360-3.740)
[2022-01-18] MEDS ORDERED: ATORVASTATIN 20 MG TAB ONE (18:57)
[2022-01-18] MEDS ORDERED: ATORVASTATIN 40 MG TAB PO SCH (21:00)
[2022-01-18 21:25] LABS: Urine Appearance Clear (Clear); Urine Bilirubin Negative (Negative); Urine Blood Negative (Negative); Urine Color Yellow (Yellow); Urine Glucose Negative (Negative); Urine Protein Negative (Negative); Urine Specific Gravity 1.025 (1.005-1.030); Urine Urobilinogen 0.2 mg/dL (0.2-1.0)
[2022-01-18 21:27] LABS: Urine Microscopic Reflex NO UMIC
[2022-01-19 03:02] LABS: Absolute Lymphocytes (CBC) 4.7 K/uL (0.7-4.9); Hematocrit 42.3 % (36.0-45.0); Lymphocytes % 44.4 % (15.3-44.8); MPV 9.5 fL (7.6-11.3); RBC Red Blood Cell Count 4.84 M/uL (3.86-4.86)
--- NOTE | 2022-01-19 06:37 | P.PN ---
Date of Service: 01/19/22 Subjective: slight dizziness earlier this morning, feels better now anxiously awaiting cath ROS: 10 point ROS as noted above, otherwise negative Physical exam GEN: Alert, oriented, NAD HEENT: Normal conjunctiva, sclera anicteric CV: Regular rate and rhythm, no edema Pulm: Non-labored respirations on room air ABD: Soft, nontender, nondistended Integumentary: No rashes Neuro: Normal speech, normal affect Problem List NSTEMI HTN CKD2 obesity troponin increased echo ordered cardio consulted, plan for cath today on heparin drip aspirin, statin BP meds as needed resume home meds once tolerating PO VTE: heparin drip Code: full Dispo: home: ~24hrs, pending cath results Time Spent Managing Pts Care (In Minutes): 35
--- NOTE | 2022-01-19 07:54 | EKG ---
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
[2022-01-19] MEDS: ASPIRIN 81 MG CHEWABLE TABLET PO SCH (08:42)
[2022-01-19] MEDS ORDERED: HEPA 1000U/500MLS 2,000 UNIT/1,000 ML BAG IV ONE (11:30)
[2022-01-19] MEDS ORDERED: NA CHLORIDE 0.9% 500 ML ONE (13:02)
[2022-01-19] MEDS ORDERED: LIDOCAINE 1% MPF 2 ML AMPULE ONE (15:42)
[2022-01-19] MEDS ORDERED: MIDAZOLAM HCL 2 MG/2 ML INJ ONE (15:42)
[2022-01-19] MEDS ORDERED: FENTANYL CITR 100 MCG/2 ML ONE (15:42)
[2022-01-19] MEDS ORDERED: HEPARIN 5000 UNIT/ML 1 ML VIAL ONE (15:42)
[2022-01-19] MEDS ORDERED: VERAPAMIL HCL 10 MG/4 ML VIAL IV ONE (15:43)
[2022-01-19] MEDS ORDERED: HEPARIN 10,000 UNIT/10 ML VIAL IV ONE (15:45)
[2022-01-19] MEDS ORDERED: NITROGLYCERIN 100 MCG/ML SYR (for cath lab use only) IV ONE (15:45)
[2022-01-19] MEDS ORDERED: CLOPIDOGREL 75 MG TABLET ONE ×2 (16:27→16:31)
[2022-01-19] MEDS ORDERED: HEPA 1000U/500MLS 1,000 UNIT/500 ML BAG IV ONE (16:29)
[2022-01-19] MEDS ORDERED: HEPARIN/D5W 25,000 UNIT/500 ML BAG IV SCH (21:00)
[2022-01-19] MEDS ORDERED: ATORVASTATIN 40 MG TAB PO SCH (21:00)
--- NOTE | 2022-01-19 23:25 | OP ---
Date of Procedure: 01/19/2022 Surgeon: EILEEN HAYNES Procedures Performed: 1.Selective coronary angiogram. 2.PCI of severe mid RCA stenosis using 3.0 x 24 mm Synergy drug-eluting stent. Access: Right radial artery 6-Kenyan closed with TR band. Indication: Non-ST elevation myocardial infarction. Complications: None. Estimated Blood Loss: Bleeding less than 10 mL. Anesthesia: Sedation time was 45 minutes, used fentanyl and versed. Description Of Procedure: After risks, benefits, alternatives were explained, the patient agreed to procedure and signed informed consent. The patient was brought into the cardiac catheterization [facility], prepped and draped in usual sterile fashion and accessed right radial artery using a SnoopWalli c micropuncture kit, placed a 6-Kenyan Slender sheath and took a 5-Kenyan [place] 4.0 catheter into aor tic root, engaged left main and right coronary artery, took standard views and then catheter was push ed over the wire into the LV. We obtained the LVEDP and pullback did not record any gradient. Then exchanged for 6-Kenyan JR4 catheter, gave 600 mg of Plavix and full-dose heparin to assure ACT level above 250 and the 6-Kenyan JR4 guide was used to engage the right coronary artery. A short run-throu gh wire was used to cross the area of stenosis and using 3.0 x 15 noncompliant balloon, the lesion wa s prepped and expanded very well and then I placed 3.0 x 24 mm Synergy drug-eluting stent with excell ent results and removed the wire and the guide and the sheath and placed TR band with good hemostasis . Findings: 1.Left main, large with 10% to 20% stenosis. 2.LAD, moderate size with a mid 50% stenosis between diagonal 1 and diagonal 2 and after diagonal 2 as well, diffuse disease and diagonal branch 1 has 50% proximal stenosis. 3.Left circumflex, very large and dominant and codominant circulation with luminal irregularities. 4.RCA, codominant circulation with mid severe 80% stenosis status post successful PCI. 5.Normal LVEDP at 8 mmHg. Conclusion: 1.Severe mid RCA stenosis, status post successful PCI, as above. 2.Moderate coronary artery disease elsewhere. Recommendation: Aspirin, Plavix, and statin and follow up as outpatient. Plan for outpatient stress test to evaluate the rest of her vessels and need for intervention. SR/MODL Voice ID: [id number] Report ID: [id number]
[2022-01-20 05:04] LABS: Potassium 3.9 mmol/L (3.5-5.1)
[2022-01-20 06:41] LABS: Phosphorus 3.9 mg/dL (2.5-4.9)
[2022-01-20] MEDS ORDERED: METOPROLOL TAR 25 MG TAB PO SCH (08:00)
[2022-01-20] MEDS ORDERED: CLOPIDOGREL 75 MG TABLET PO SCH (09:00)
[2022-01-20] MEDS ORDERED: POTASSIUM CL SA 10 MEQ TAB PO ONE (09:00)
--- NOTE | 2022-01-20 09:11 | P.DS ---
Admission Date: 01/18/22 Discharge Date: 01/20/22 Disposition: ROUTINE DISCHARGE Discharge Condition: GOOD Reason for Admission: Chest pain Consultations: Cardiology - Dr. Gant Brief History of Present Illness: 61yo F, PMH: HTN, Obesity Presented to ED with chest pain at work, radiated to jaw. In the ED, diagnosed with NSTEMI. Hospital Course: Patient was found to have elevated troponin levels. Cardiology was consulted and patient underwent cardiac catheterization on 01/19. She was found to have coronary artery disease and a stent was placed in her right coronary artery. She was also noted to have elevated cholesterol levels. She was deemed stable for discharge home. Prescribed aspirin, plavix, atorvastatin, and metoprolol. Follow up with Cardiology - Dr. Gant, in 2 weeks. Will discuss possible stress testing in near future. 10-20% noted in left main coronary artery. LAD with ~50% stenosis, RCA with 80% stenosis (stent placed) Vital Signs/Physical Exam: Temp Pulse Resp BP Pulse Ox 97.7 F 68 18 141/69 H 98 01/20/22 04:00 01/20/22 04:00 01/20/22 04:49 01/20/22 04:00 01/20/22 04:49 Physical exam GEN: Alert, oriented, NAD HEENT: Normal conjunctiva, sclera anicteric CV: Regular rate and rhythm, no edema Pulm: Non-labored respirations on room air ABD: Soft, nontender, nondistended Neuro: Normal speech, normal affect Laboratory Data at Discharge: WBC 10.5 K/uL (4.3-10.9) 01/19/22 02:23 Hgb 14.3 g/dL (12.0-15.0) 01/19/22 02:23 Hct 42.3 % (36.0-45.0) 01/19/22 02:23 Plt Count 357 K/uL (152-406) 01/19/22 02:23 PT 10.5 SECONDS (9.5-12.5) 01/18/22 14:21 INR 0.96 01/18/22 14:21 APTT Cancelled 01/20/22 03:00 Sodium 137 mmol/L (136-145) 01/20/22 03:59 Potassium 3.9 mmol/L (3.5-5.1) 01/20/22 03:59 BUN 16 mg/dL (7-18) 01/20/22 03:59 Creatinine 0.86 mg/dL (0.55-1.3) 01/20/22 03:59 Glucose 153 mg/dL (74-106) H 01/20/22 03:59 Phosphorus 3.9 mg/dL (2.5-4.9) 01/20/22 03:59 Magnesium 2.2 mg/dL (1.8-2.4) 01/18/22 14:21 Total Bilirubin 0.2 mg/dL (0.2-1.0) 01/18/22 14:21 AST 22 U/L (15-37) 01/18/22 14:21 ALT 44 U/L (12-78) 01/18/22 14:21 Alkaline Phosphatase 117 U/L (45-117) 01/18/22 14:21 Triglycerides 256 mg/dL (<150) H 01/18/22 16:58 Cholesterol 255 mg/dL (<200) H 01/18/22 16:58 HDL Cholesterol 39 mg/dL (40-60) L 01/18/22 16:58 Cholesterol/HDL Ratio 6.54 01/18/22 16:58 Home Medications: Aspirin [Aspirin EC 81 MG] 81 mg PO DAILY 30 Days #30 tablet. 01/20/22 Atorvastatin Calcium [Lipitor] 40 mg PO BEDTIME 30 Days #30 tab 01/20/22 Clopidogrel Bisulfate [Plavix*] 75 mg PO DAILY 30 Days #30 tablet 01/20/22 Metoprolol Tartrate [Lopressor*] 0.5 tab PO BID 6AM 6PM 30 Days #30 tab 01/20/22 New Medications: Aspirin [Aspirin EC 81 MG] 81 mg PO DAILY 30 Days #30 tablet. Atorvastatin Calcium [Lipitor] 40 mg PO BEDTIME 30 Days #30 tab Metoprolol Tartrate [Lopressor*] 0.5 tab PO BID 6AM 6PM 30 Days #30 tab Clopidogrel Bisulfate [Plavix*] 75 mg PO DAILY 30 Days #30 tablet Diet: [facility] Time spent managing pt's care (in minutes): 45
[2022-01-20 09:13] VITALS: O2SAT 97
[2022-01-20] MEDS: ASPIRIN 81 MG CHEWABLE TABLET PO SCH (09:19)
--- NOTE | 2022-01-20 09:29 | ECHO ---
HEIGHT: 5 ft 3 in WEIGHT: 178 lb 9.6 oz DATE OF STUDY: 01/19/[address]: Sabrina Duran 2-DIMENSIONAL: YES M.MODE: YES DOPPLER: YES COLOR FLOW: YES TDS: PORTABLE: YES DEFINITY: BUBBLE STUDY: DIAGNOSIS: NON ST ELEVATION MYOCARDIAL INFARCTION CARDIAC HISTORY: CATHERIZATION: NO SURGERY: NO PROSTHETIC VALVE: NO PACEMAKER: NO MEASUREMENTS (cm) DIASTOLIC (NORMALS) SYSTOLIC (NORMALS) IVSd 0.9 (0.6-1.2) LA Diam 1.9 (1.9-4.0) LVEF 65% LVIDd 4.2 (3.5-5.7) LVIDs 2.7 (2.0-3.5) %FS 35% LVPWd 1.1 (0.6-1.2) Ao Diam 2.4 (2.0-3.7) 2 DIMENSIONAL ASSESSMENT: RIGHT ATRIUM: NORMAL LEFT ATRIUM: NORMAL RIGHT VENTRICLE: NORMAL LEFT VENTRICLE: NORMAL TRICUSPID VALVE: MODERATE TRICUSPID REGURGITATION MITRAL VALVE: NORMAL PULMONIC VALVE: NORAML AORTIC VALVE: NORMAL PERICARDIAL EFFUSION: NONE AORTIC ROOT: NORMAL LEFT VENTRICULAR WALL MOTION: NORMAL DOPPLER/COLOR FLOW: MODERATE TRICUSPID REGURGITATION COMMENTS: NORMAL LEFT VENTRICULAR EJECTION FRACTION 60-65%. NORMAL WALL MOTION. MODERATE TRICUSPID REGURGITATION. TECHNOLOGIST: ERVIN SOLER
[2022-01-20 10:15] VITALS: BP 134/74; TEMP 96.4
--- NOTE | 2022-01-20 17:57 | EKG ---
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
--- NOTE | 2022-01-22 14:05 | CON ---
Date of Consultation: 01/18/2022 Reason For Consultation: Non-ST elevation myocardial infarction. History Of Present Illness: Ms. Leggett is a 61-year-old woman without any past medica l history. She does not take any medicines. She does not have any allergies. Came in with substern al chest pressure radiating to the left arm with some diaphoresis and shortness of breath. Symptoms were nonexertional. No nausea, vomiting PND, orthopnea, pedal edema, palpitations, or syncope. She was found to have a triglyceride of 256, cholesterol of 255 with LDL of 65. Her troponin was 208. E KG was nonspecific. Chest x-ray was negative. Review of Systems: Noncontributory. Social History: Noncontributory. Family History: Noncontributory. Physical Examination: Vital Signs: Stable, afebrile. HEENT: Negative. Neck: Supple with no bruit, lymphadenopathy, JVD, or thyromegaly. Chest: Clear to auscultation and percussion. Cardiac: Revealed a regular rhythm and rate. No murmurs, gallops, or rubs. Abdomen: Benign. Extremities: Revealed no clubbing, cyanosis, or edema. Diagnostic Data: As stated earlier. Impression And Plan: 1.Non-ST elevation myocardial infarction. 2.Dyslipidemia. The patient used to be on aspirin, statin, beta-blockers, Lovenox. We will hold th e Lovenox tonight. She will have a heart catheterization by Dr. Gant on 01/19/2022 to define her coronary anatomy. The patient understands the risk and the benefits of the procedure and she agr ees to proceed. KENTON/LEOBARDO Voice ID: [id number] Report ID: [id number]
== END 2022-01-20 11:15 | disposition home or self-care (01) | DRG 247 ==
LOC: ER 13:40 → ERHOLD 15:56 → 2ND 19:59
PROVIDERS: ADMIT Hospitalist; ATTEND Hospitalist
PROC: 027034Z Dilation of Coronary Artery, One Artery with Drug-eluting Intraluminal Device, Percutaneous Approach (ICD-10-PCS; principal; 2022-01-19)
PROC: 4A023N7 Measurement of Cardiac Sampling and Pressure, Left Heart, Percutaneous Approach (ICD-10-PCS; 2022-01-19)
PROC: B2011ZZ Plain Radiography of Multiple Coronary Arteries using Low Osmolar Contrast (ICD-10-PCS; 2022-01-19)
DX: I21.4 Non-ST elevation (NSTEMI) myocardial infarction (principal); I12.9 Hypertensive chronic kidney disease with stage 1 through stage 4 chronic kidney disease, or unspecified chronic kidney disease; N18.2 Chronic kidney disease, stage 2 (mild); E66.9 Obesity, unspecified; Z68.31 Body mass index [BMI] 31.0-31.9, adult; I25.10 Atherosclerotic heart disease of native coronary artery without angina pectoris; E78.5 Hyperlipidemia, unspecified; Z20.822 Contact with and (suspected) exposure to COVID-19
CPT/HCPCS: 36415; 71045; 76937; 80048; 80061; 80076; 81003; 83036; 83735; 83880; 84100; 84439; 84443; 84484; 85025; 85347; 85610; 85730; 92928; 93005; 93306; 93458; 96365; 96366; 99285; C1725; C1893; J1644; J2250; J3010; J7040; Q9966; Q9967; U0003

== ENCOUNTER 2023-04-15 13:22 | Emergency (ER) | payer OTHER, SELFPAY ==
[2023-04-15 15:01] LABS: Absolute Lymphocytes (CBC) 3.4 K/uL (0.7-4.9); Lymphocytes % 33.2 % (15.3-44.8); MCV 87.5 fL (80-100); MPV 9.1 fL (7.6-11.3); Platelets 380 thou/uL (152-406); RBC Red Blood Cell Count 4.69 M/uL (3.86-4.86)
[2023-04-15 15:21] LABS: Potassium 3.7 mEq/L (3.5-5.1); Troponin High Sensitivity 3.9 pg/mL (<58.9)
--- NOTE | 2023-04-15 16:05 | RAD REPORT ---
EXAM DESCRIPTION: CTAngio Aorta For Dissection - 04/15/2023 3:42 pm CLINICAL HISTORY: CHEST PAIN COMPARISON: No comparisons TECHNIQUE: CTA of the chest, abdomen, and pelvis was performed. MIPS of the aorta were created. All CT scans are performed using dose optimization technique as appropriate and may include automated exposure control or mA/KV adjustment according to patient size. FINDINGS: Thorax: Chest Wall: No abnormal mass Lungs: No acute abnormality. Pleura: No effusions or pneumothorax. Kerrie/Mediastinum: No lymphadenopathy. Small hiatal hernia suspected. Aorta/Pulmonary Arteries: Unremarkable Heart: Normal size. Mild multi-vessel coronary artery calcifications . Abdomen/Pelvis: Liver: Hepatic steatosis Biliary: No biliary ductal dilatation. Stomach: No significant focal abnormality. Duodenum: No significant focal abnormality. Pancreas: No significant abnormality. Spleen: No significant abnormality. Adrenal: No suspicious lesions. Kidney/ureter: No hydronephrosis. No renal calculi. Retroperitoneum: No retroperitoneal adenopathy. Vascular: Aortoiliac atherosclerosis. There is a mild to moderate narrowing of the left common iliac artery. Short-segment dissection with plaque irregularity at the infrarenal abdominal aorta but no an eurysm. Bowel: No significant focal abnormality. Peritoneum: No ascites or free air. Bladder: Grossly unremarkable. Reproductive: No adnexal masses. Bones: No acute fracture. Other: n/a IMPRESSION: No aortic aneurysm identified. No thoracic dissection. 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 Other findings as noted above.
--- NOTE | 2023-04-15 16:15 | ER ---
Nurse's Notes [facility] Name: Holly Leggett Age: 63 yrs Sex: Female : 1960 Arrival Date: 04/15/2023 Time: 13:22 Bed 19 Private MD: Diagnosis: Right scapular pain, right shoulder pain, muscle strain Presentation: 04/15 14:02 Chief complaint: Patient states: Right shoulder, upper back and armpit pain since nj1 Sunday, unknown injury, took tylenol Sunday with no relief. Pain has not gotten any better. Able to move joint but painful. Coronavirus screen: Vaccine status: Patient reports receiving the 2nd dose of the covid vaccine. Ebola Screen: Patient denies travel to an Ebola-affected area in the 21 days before illness onset. Initial Sepsis Screen: Does the patient meet any 2 criteria? No. Patient's initial sepsis screen is negative. Does the patient have a suspected source of infection? No. Patient's initial sepsis screen is negative. Risk Assessment: Do you want to hurt yourself or someone else? Patient reports no desire to harm self or others. Onset of symptoms was April 13, 2023. 14:02 Method Of Arrival: Ambulatory [facility] 14:02 Acuity: ANDRIY 3 nj1 Historical: - Allergies: 14:05 No Known Allergies; nj1 - PMHx: 14:05 Hypertension; Diabetes mellitus; nj1 14:07 Coronary atherosclerosis; nj1 - PSHx: 14:05 Hysterectomy; nj 14:07 Stented artery; Coronary Angioplasty; nj1 - Immunization history:: Client reports receiving the 2nd dose of the Covid vaccine. - Social history:: Smoking status: Patient denies any tobacco usage or history of. Screenin:45 [facility] ED Fall Risk Assessment (Adult) History of falling in the last 3 months, kc6 including since admission No falls in past 3 months (0 pts) Confusion or Disorientation No (0 pts) Intoxicated or Sedated No (0 pts) Impaired Gait No (0 pts) Mobility Assist Device Used No (0 pt) Altered Elimination No (0 pt) Score/Fall Risk Level 0 - 2 = Low Risk. Abuse screen: Denies threats or abuse. Denies injuries from another. Nutritional screening: No deficits noted. Tuberculosis screening: No symptoms or risk factors identified. Assessment: 14:45 General: Appears in no apparent distress. comfortable, Behavior is calm, cooperative, kc6 appropriate for age. Pain: Complains of pain in right arm. Neuro: Level of Consciousness is awake, alert, obeys commands, Oriented to person, place, time, situation, Appropriate for age. Cardiovascular: Denies chest pain, Heart tones S1 S2 present Capillary refill < 3 seconds Rhythm is sinus rhythm. Respiratory: Airway is patent Trachea midline Respiratory effort is even, unlabored, Respiratory pattern is regular, symmetrical. GI: No signs and/or symptoms were reported involving the gastrointestinal system. : No signs and/or symptoms were reported regarding the genitourinary system. EENT: No signs and/or symptoms were reported regarding the EENT system. Derm: No signs and/or symptoms reported regarding the dermatologic system. Skin is intact, is healthy with good turgor, Skin is pink, warm \T\ dry. Musculoskeletal: No signs and/or symptoms reported regarding the musculoskeletal system. Circulation, motion, and sensation intact. Capillary refill < 3 seconds, Range of motion: intact in all extremities. 15:22 Reassessment: Patient appears in no apparent distress at this time. No changes from kc6 previously documented assessment. Patient and/or family updated on plan of care and expected duration. Pain level reassessed. Patient is alert, oriented x 3, equal unlabored respirations, skin warm/dry/pink. 16:47 Reassessment: Patient appears in no apparent distress at this time. No changes from kc6 previously documented assessment. Patient and/or family updated on plan of care and expected duration. Pain level reassessed. Patient is alert, oriented x 3, equal unlabored respirations, skin warm/dry/pink. Vital Signs: 14:02 BP 123 / 106; Pulse 76; Resp 18; Temp 98.1; Pulse Ox 98% on R/A; Weight 81.65 kg; nj1 Height 5 ft. 2 in. ; Pain 10/10; 15:22 BP 134 / 67; Pulse 63; Resp 20 S; Pulse Ox 96% on R/A; kc6 14:02 Body Mass Index 32.92 (81.65 kg, 157.48 cm) [facility] 14:02 Pain Scale: Adult [facility] ED Course: 13:25 Patient arrived in ED. im 13:27 Mandy Smith MD is Attending Physician. sp3 14:05 Triage completed. nj1 14:07 Arm band placed on right wrist. nj1 14:17 Kaia Plasencia, RN is Primary Nurse. kc6 14:44 Inserted saline lock: 20 gauge in right antecubital area, using aseptic technique. kc6 Blood collected. 14:45 Patient has correct armband on for positive identification. Bed in low position. Call kc6 light in reach. Side rails up X 1. Adult w/ patient. 15:44 Angio Aorta For Dissection In Process Unspecified. EDMS 16:47 No provider procedures requiring assistance completed. IV discontinued, intact, kc6 bleeding controlled, No redness/swelling at site. Pressure dressing applied. Administered Medications: No medications were administered Medication: 16:47 VIS not applicable for this client. kc6 Outcome: 16:15 Discharge ordered by . sp3 16:47 Discharged to home ambulatory, with family. kc6 16:47 Condition: stable 16:47 Discharge instructions given to patient, Instructed on discharge instructions, follow up and referral plans. medication usage, Demonstrated understanding of instructions, follow-up care, medications, Prescriptions given X 1. 16:47 Patient left the ED. kc6 Signatures: Dispatcher [employer] EDMS Mandy Smith MD MD sp3 Kaia Plasencia, RN RN kc6 Diane Mayberry RN RN nj1 Penny Paz
--- NOTE | 2023-04-15 16:15 | EDPHYS ---
Physician Documentation [facility] Name: Holly Leggett Age: 63 yrs Sex: Female : 1960 Arrival Date: 04/15/2023 Time: 13:22 Bed 19 Private MD: ED Physician Mandy Smith HPI: 04/15 14:25 This 63 yrs old Female presents to ER via Ambulatory with complaints of sp3 Shoulder Pain, upper back under armpit pain. 14:25 63-year-old female with history of diabetes, hypertension, coronary artery disease now sp3 presents to the ED with chief complaint right shoulder pain extending into the scapular region and into the axilla. Patient states that she normally has not had this pain and denies any trauma or significant muscle injury. She states pain started insidiously and is not going away and is somewhat positional but not totally. She denies headache, anterior chest pain, shortness of breath, lower back pain, left-sided pain, numbness or tingling, motor dysfunction, fever, URI symptoms, known sick contacts, travel history, or any other signs or symptoms on ROS at this time.. Historical: - Allergies: 14:05 No Known Allergies; nj1 - PMHx: 14:05 Hypertension; Diabetes mellitus; nj1 14:07 Coronary atherosclerosis; nj1 - PSHx: 14:05 Hysterectomy; nj1 14:07 Stented artery; Coronary Angioplasty; nj1 - Immunization history:: Client reports receiving the 2nd dose of the Covid vaccine. - Social history:: Smoking status: Patient denies any tobacco usage or history of. ROS: 14:26 Constitutional: Negative for fever, chills, and weight loss, Eyes: Negative for injury, sp3 pain, redness, and discharge, Neck: Negative for injury, pain, and swelling, Cardiovascular: Negative for chest pain, palpitations, and edema, Respiratory: Negative for shortness of breath, cough, wheezing, and pleuritic chest pain, Back: Negative for injury and pain, Skin: Negative for injury, rash, and discoloration, Neuro: Negative for headache, weakness, numbness, tingling, and seizure, Psych: Negative for depression, anxiety, suicide ideation, homicidal ideation, and hallucinations, Allergy/Immunology: Negative for hives, rash, and allergies, Endocrine: Negative for neck swelling, polydipsia, polyuria, polyphagia, and marked weight changes. 14:26 All other systems are negative. Exam: 14:26 Constitutional: This is a well developed, well nourished patient who is awake, alert, sp3 and in no acute distress. Head/Face: Normocephalic, atraumatic. Eyes: Pupils equal round and reactive to light, extra-ocular motions intact. Lids and lashes normal. Conjunctiva and sclera are non-icteric and not injected. Cornea within normal limits. Periorbital areas with no swelling, redness, or edema. ENT: Nares patent. No nasal discharge, no septal abnormalities noted. External auditory canals are clear. Oropharynx with no redness, swelling, or masses, exudates, or evidence of obstruction, uvula midline. Mucous membranes moist. Neck: Trachea midline, no thyromegaly or masses palpated, and no cervical lymphadenopathy. Supple, full range of motion without nuchal rigidity, or vertebral point tenderness. No Meningismus. Cardiovascular: Regular rate and rhythm with a normal S1 and S2. No gallops, murmurs, or rubs. Normal PMI, no JVD. No pulse deficits. Respiratory: Lungs have equal breath sounds bilaterally, clear to auscultation and percussion. No rales, rhonchi or wheezes noted. No increased work of breathing, no retractions or nasal flaring. Back: No spinal tenderness. No costovertebral tenderness. Full range of motion. Skin: Warm, dry with normal turgor. Normal color with no rashes, no lesions, and no evidence of cellulitis. MS/ Extremity: Pulses equal, no cyanosis. Neurovascular intact. Full, normal range of motion. Neuro: Awake and alert, GCS 15, oriented to person, place, time, and situation. Cranial nerves II-XII grossly intact. Motor strength 5/5 in all extremities. Sensory grossly intact. Cerebellar exam normal. Normal gait. 14:26 Chest/axilla: Mild pain noted to the latissimus dorsi muscular region including insertion points into the axilla and upper back. However level of tenderness does not correlate with level of pain that patient has at rest. . 14:43 ECG was reviewed by the Attending Physician. EKG demonstrates normal sinus rhythm at 66 sp3 bpm with normal intervals, normal QRS, normal axis, normal axis ST segments without evidence of any acute ischemia. Vital Signs: 14:02 BP 123 / 106; Pulse 76; Resp 18; Temp 98.1; Pulse Ox 98% on R/A; Weight 81.65 kg; nj1 Height 5 ft. 2 in. ; Pain 10/10; 15:22 BP 134 / 67; Pulse 63; Resp 20 S; Pulse Ox 96% on R/A; kc6 14:02 Body Mass Index 32.92 (81.65 kg, 157.48 cm) nj1 14:02 Pain Scale: Adult nj1 MDM: 14:18 Patient medically screened. 3 14:28 Data reviewed: vital signs, nurses notes, lab test result(s), EKG, radiologic studies. 3 ED course: 61-year-old female with pain reported in the right shoulder and scapular region. Mild pain noted to the latissimus dorsi muscular region including insertion points into the axilla and upper back. However level of tenderness does not correlate with level of pain that patient has at rest. For this reason, we will extend work-up to include CT scan of the chest on the dissection protocol, laboratory values and EKG. Differential diagnosis is broad and includes musculoskeletal pain, acute coronary syndrome, aortic dissection or aneurysm, among others. Work-up is negative and patient feels better we will safely discharge her home. We will hold on any medication until diagnostics are complete.. 16:14 ED course: Work-up negative with normal laboratory values and normal CT scan of the 3 chest dissection protocol. There is no vascular, bony or other abnormality noted. We will safely discharge patient home on oral NSAID and follow-up with PCP.. 04/15 14:23 Order name: Basic Metabolic Panel; Complete Time: 15:30 3 04/15 14:23 Order name: CBC with Diff; Complete Time: 15:30 3 04/15 14:23 Order name: Troponin HS; Complete Time: 15:30 3 04/15 15:02 Order name: Angio Aorta For Dissection; Complete Time: 16:09 EDMS 04/15 14:23 Order name: EKG; Complete Time: 14:24 sp3 04/15 14:23 Order name: Cardiac monitoring; Complete Time: 14:44 sp3 04/15 14:23 Order name: EKG - Nurse/Tech; Complete Time: 14:44 sp3 04/15 14:23 Order name: IV Saline Lock; Complete Time: 14:44 sp3 04/15 14:23 Order name: Labs collected and sent; Complete Time: :44 sp3 04/15 14:23 Order name: O2 Sat Monitoring; Complete Time: 14:44 sp3 Administered Medications: No medications were administered Disposition Summary: 04/15/23 16:15 Discharge Ordered Location: Home sp3 Condition: Stable sp3 Diagnosis - Right scapular pain, right shoulder pain, muscle strain sp3 Followup: sp3 - With: Private Physician - When: Upon discharge from the Emergency Department - Reason: Continuance of care Discharge Instructions: - Discharge Summary Sheet sp3 - Muscle Strain sp3 Forms: - Medication Reconciliation Form sp3 - Thank You Letter sp3 - Antibiotic Education sp3 - Prescription Opioid Use sp3 - Patient Portal Instructions sp3 - Leadership Thank You Letter sp3 Prescriptions: - Diclofenac Sodium 75 mg Oral Tablet Sustained Release - take 1 tablet by ORAL route 2 times per day; 30 tablet; Refills: 0, Product sp3 Selection Permitted Signatures: Dispatcher [employer] EDMandy Yang MD MD sp3 Diane Mayberry RN RN nj1 Corrections: (The following items were deleted from the chart) 14:28 14:26 Chest/axilla: Mild pain noted to the latissimus dorsi muscular region including sp3 insertion points into the axilla and upper back. However level of tenderness does not correlate with level of pain that patient has at rest. For this reason, we will extend work-up to include CT scan of the chest on the dissection protocol, laboratory values and EKG. Differential diagnosis is broad and includes musculoskeletal pain, acute coronary syndrome, aortic dissection or aneurysm, among others. Work-up is negative and patient feels better we will safely discharge her home. We will hold on any medication until diagnostics are complete.. sp3 15:02 14:24 Chest Angio+CT.SANTINO.MCKAYLA ordered. EDMS EDMS
[2023-04-15 17:04] VITALS: TEMP 98.1
[2023-04-15 17:10] VITALS: BP 134/67; O2SAT 96
--- NOTE | 2023-04-16 17:58 | EKG ---
Test Date: 2023-04-15 Test Time: 14:34:20 Maintenance Helper: JERE MEASUREMENT RESULTS: Intervals: Rate: 66 MN: 144 QRSD: 86 QT: 406 QTc: 425 [place]: P: 61 MN: 144 QRS: 57 T: 59 INTERPRETIVE STATEMENTS: Normal sinus rhythm Normal ECG Compared to ECG 01/20/2022 09:08:36 T-wave abnormality no longer present Electronically Signed On 04-16-23 17:56:36 CDT by Martin Gant
== END 2023-04-15 16:47 | disposition home or self-care (01) ==
LOC: ER 13:22
DX: S46.911A Strain of unspecified muscle, fascia and tendon at shoulder and upper arm level, right arm, initial encounter (principal); I10 Essential (primary) hypertension; E11.9 Type 2 diabetes mellitus without complications
CPT/HCPCS: 93005; 85025; 80048; 36415; 84484; 71275; 74175; 99284; Q9967

== ENCOUNTER → 2023-09-04 | Emergency (ER) | payer OTHER ==
[~2023-09-04] MED LIST: MAGNES/ALUMIN/SIMET 30ML UCUP ONE
[2023-09-04 14:45] LABS: Specific Gravity 1.024 (1.005-1.030); Urine Bacteria 20-50 /HPF (<20); Urine Bilirubin NEGATIVE (Negative); Urine Blood 1+ (Negative); Urine Clarity Extremely Turbid (Clear); Urine Color Yellow (Yellow); Urine Glucose NEGATIVE (Negative); Urine Mucus Slight /HPF (None Seen); Urine Protein NEGATIVE (Negative); Urine Urobilinogen Normal (Normal); Urine pH 5.5 (5.0-7.0)
[2023-09-04 15:29] LABS: Absolute Lymphocytes (CBC) 2.9 K/uL (0.7-4.9); Hematocrit 40.7 % (36.0-45.0); Lymphocytes % 29.1 % (15.3-44.8); MCV 86.6 fL (80-100); MPV 8.8 fL (7.6-11.3); Platelets 357 thou/uL (152-406)
[2023-09-04 15:45] LABS: Albumin 3.4 g/dL (3.4-5.0); Bilirubin Total 0.3 mg/dL (0.2-1.0); Potassium 3.7 mEq/L (3.5-5.1); Protein, Total 7.5 g/dL (6.4-8.2)
--- NOTE | 2023-09-04 17:05 | RAD REPORT ---
EXAM DESCRIPTION: CTAbdomen Pelvis W Contrast - 09/04/2023 4:47 pm CLINICAL HISTORY: ABD PAIN COMPARISON: No comparisons TECHNIQUE: CT of the abdomen and pelvis was performed. All CT scans are performed using dose optimization technique as appropriate and may include automated exposure control or mA/KV adjustment according to patient size. FINDINGS: Lower chest: Small hiatal hernia. Right coronary artery stent. Liver: Hepatic steatosis. No focal mass. Biliary: No biliary ductal dilatation. Stomach: No significant focal abnormality. Duodenum: No significant focal abnormality. Pancreas: No significant abnormality. Spleen: No significant abnormality. Adrenal: No suspicious lesions. Kidney/ureter: No hydronephrosis. No renal calculi. Retroperitoneum: No retroperitoneal adenopathy. Vascular: No aneurysm. Atherosclerosis. There is at least moderate narrowing at the proximal iliac ar teries. Bowel: Normal appendix. No bowel obstruction.. Peritoneum: No ascites or free air. Bladder: Grossly unremarkable. Reproductive: No adnexal masses. Bones: No acute fracture. Multilevel degenerative changes are present in the spine. Other: n/a IMPRESSION: No acute intra-abdominal or pelvic finding. Incidental findings as noted above.
--- NOTE | 2023-09-04 18:04 | ER ---
Nurse's Notes [facility] Name: Holly Leggett Age: 63 yrs Sex: Female : 1960 Arrival Date: 09/04/2023 Time: 13:48 Bed 5 Private MD: Diagnosis: Gastritis, unspecified, without bleeding;Upper abdominal pain, unspecified Presentation: 09/04 14:09 Chief complaint: Patient states: Upper abdominal pain for 3 days with nausea. Had ll1 diarrhea Sunday, better now. No fever. Coronavirus screen: Client denies travel out of the [place] in the last 14 days. At this time, the client does not indicate any symptoms associated with coronavirus-19. Ebola Screen: Patient denies travel to an Ebola-affected area in the 21 days before illness onset. Initial Sepsis Screen: Does the patient meet any 2 criteria? No. Patient's initial sepsis screen is negative. Does the patient have a suspected source of infection? Yes: Acute abdominal pain. Risk Assessment: Do you want to hurt yourself or someone else? Patient reports no desire to harm self or others. Onset of symptoms was September 01, 2023. 14:09 Method Of Arrival: Ambulatory ll1 14:09 Acuity: ANDRIY 3 ll1 Historical: - Allergies: 14:11 No Known Allergies; ll1 - PMHx: 14:11 diabetes mellitus; Hypertension; coronary atherosclerosis; ll1 - PSHx: 14:11 hysterectomy; Coronary Angioplasty; Stented artery; ll1 - Immunization history:: Adult Immunizations up to date. - Social history:: Smoking status: Patient denies any tobacco usage or history of. Screenin:26 [facility] ED Fall Risk Assessment (Adult) History of falling in the last 3 months, mb9 including since admission No falls in past 3 months (0 pts) Confusion or Disorientation No (0 pts) Intoxicated or Sedated No (0 pts) Impaired Gait No (0 pts) Mobility Assist Device Used No (0 pt) Altered Elimination No (0 pt) Score/Fall Risk Level 0 - 2 = Low Risk Oriented to surroundings, Maintained a safe environment, Educated pt \T\ family on fall prevention, incl call for assistance when getting out of bed. Abuse screen: Denies threats or abuse. Nutritional screening: No deficits noted. Tuberculosis screening: No symptoms or risk factors identified. Assessment: 15:25 General: Appears in no apparent distress. Behavior is calm, cooperative. Pain: mb9 Complains of pain in abdomen Pain does not radiate. Pain currently is 8 out of 10 on a pain scale. Quality of pain is described as throbbing, Pain began 2-3 days ago. Is continuous. Neuro: Grimes Agitation-Sedation Scale (RASS): 0 - Alert and Calm Level of Consciousness is awake, alert, obeys commands, Oriented to person, place, time, situation, Appropriate for age. Cardiovascular: Patient's skin is warm and dry. Respiratory: Airway is patent Respiratory effort is even, unlabored, Respiratory pattern is regular, symmetrical, Breath sounds are clear bilaterally. GI: Abdomen is flat, Bowel sounds present X 4 quads. Abd is soft and non tender X 4 quads. GI: Reports lower abdominal pain, upper abdominal pain, diarrhea. : No signs and/or symptoms were reported regarding the genitourinary system. EENT: No signs and/or symptoms were reported regarding the EENT system. Derm: Skin is pink, warm \T\ dry. Musculoskeletal: Range of motion: intact in all extremities. 16:34 Reassessment: No changes from previously documented assessment. Patient and/or family mb9 updated on plan of care and expected duration. Pain level reassessed. Patient is alert, oriented x 3, equal unlabored respirations, skin warm/dry/pink. 17:39 Reassessment: No changes from previously documented assessment. Patient and/or family mb9 updated on plan of care and expected duration. Pain level reassessed. Patient is alert, oriented x 3, equal unlabored respirations, skin warm/dry/pink. 18:16 Reassessment: Patient and/or family updated on plan of care and expected duration. Pain mb9 level reassessed. Patient is alert, oriented x 3, equal unlabored respirations, skin warm/dry/pink. Patient states feeling better. Patient states symptoms have improved. Vital Signs: 14:09 BP 139 / 64; Pulse 86; Resp 18; Temp 97.5; Pulse Ox 98% ; Weight 79.83 kg; Height 5 ft. ll1 2 in. ; Pain 10/10; 15:26 BP 116 / 71; Pulse 74; Resp 18; Pulse Ox 100% on R/A; mb9 17:42 BP 141 / 67; Pulse 70; Resp 16; Pulse Ox 100% ; mb9 14:09 Body Mass Index 32.19 (79.83 kg, 157.48 cm) ll1 14:09 Pain Scale: Adult ll1 ED Course: 13:52 Patient arrived in ED. kj1 14:05 Alex Tovar DO is Attending Physician. ms3 14:05 Attending Physician role handed off by Alex Tovar DO gb1 14:05 Rocio Hernández MD is Attending Physician. gb1 14:11 Triage completed. ll1 14:11 Arm band placed on. ll1 14:34 Urinalysis w/ reflexes Sent. zm 14:43 Urinalysis w/ reflexes Sent. iw 15:25 Kathy Carl, RN is Primary Nurse. mb9 15:25 Inserted saline lock: 20 gauge in right antecubital area, using aseptic technique. mb9 Blood collected. 15:26 Placed in gown. Bed in low position. Call light in reach. Side rails up X 1. Client mb9 placed on continuous cardiac and pulse oximetry monitoring. NIBP monitoring applied. 15:26 No provider procedures requiring assistance completed. mb9 15:26 CBC with Diff Sent. mb9 15:26 CMP Sent. mb9 15:26 Lipase Sent. mb9 16:49 CT Abd/Pelvis - IV Contrast Only In Process Unspecified. EDMS 18:17 IV discontinued, intact, bleeding controlled, No redness/swelling at site. Pressure mb9 dressing applied. Administered Medications: 17:48 Drug: GI Cocktail with - (Maalox PO 30 ml, Lidocaine Mucous Membrane 2 % 20 mb9 ml, Phenobarbital-Belladonna PO 10 ml) PO once Route: PO; 17:49 Follow up: Response: No adverse reaction mb9 Medication: 15:26 VIS not applicable for this client. mb9 Outcome: 18:04 Discharge ordered by . gb1 18:17 Discharged to home ambulatory, mb9 18:17 Condition: stable 18:17 Discharge instructions given to patient, Instructed on discharge instructions, follow up and referral plans. Demonstrated understanding of instructions, follow-up care, medications, Prescriptions given X 2, 18:17 Patient left the ED. mb9 Signatures: Dispatcher [employer] EDMS Kristin Pak RN RN iw Saida Castillo kj1 Travis Pratt RN RN ll1 Alex Tovar DO DO ms3 Teresa Willard Mary Beth, RN RN mb9 Rocio Hernández MD MD gb1
--- NOTE | 2023-09-04 18:04 | EDPHYS ---
Physician Documentation [facility] Name: Holly Leggett Age: 63 yrs Sex: Female : 1960 Arrival Date: 09/04/2023 Time: 13:48 Bed 5 Private MD: ED Physician Rocio Hernández HPI: 09/04 18:05 This 63 yrs old Female presents to ER via Ambulatory with complaints of gb1 Abdominal Pain. 18:05 63 years old epigastric pain worse with food. Patient states that she feels more full. gb1 She has history of diabetes, hypertension and coronary artery disease. No diarrhea or fever.. Historical: - Allergies: 14:11 No Known Allergies; ll1 - PMHx: 14:11 diabetes mellitus; Hypertension; coronary atherosclerosis; ll1 - PSHx: 14:11 hysterectomy; Coronary Angioplasty; Stented artery; ll1 - Immunization history:: Adult Immunizations up to date. - Social history:: Smoking status: Patient denies any tobacco usage or history of. ROS: 18:05 Abdomen/GI: Positive for abdominal pain, gb1 18:05 All other systems are negative, Exam: 18:05 Constitutional: This is a well developed, well nourished patient who is awake, alert, gb1 and in no acute distress. Head/Face: Normocephalic, atraumatic. Eyes: Pupils equal round and reactive to light, extra-ocular motions intact. Lids and lashes normal. Conjunctiva and sclera are non-icteric and not injected. Cornea within normal limits. Periorbital areas with no swelling, redness, or edema. ENT: Nares patent. No nasal discharge, no septal abnormalities noted. Tympanic membranes are normal and external auditory canals are clear. Oropharynx with no redness, swelling, or masses, exudates, or evidence of obstruction, uvula midline. Mucous membranes moist. Neck: Trachea midline, no thyromegaly or masses palpated, and no cervical lymphadenopathy. Supple, full range of motion without nuchal rigidity, or vertebral point tenderness. No Meningismus. Chest/axilla: Normal chest wall appearance and motion. Nontender with no deformity. No lesions are appreciated. Cardiovascular: Regular rate and rhythm with a normal S1 and S2. No gallops, murmurs, or rubs. Normal PMI, no JVD. No pulse deficits. Respiratory: Lungs have equal breath sounds bilaterally, clear to auscultation and percussion. No rales, rhonchi or wheezes noted. No increased work of breathing, no retractions or nasal flaring. Back: No spinal tenderness. No costovertebral tenderness. Full range of motion. Skin: Warm, dry with normal turgor. Normal color with no rashes, no lesions, and no evidence of cellulitis. MS/ Extremity: Pulses equal, no cyanosis. Neurovascular intact. Full, normal range of motion. Neuro: Awake and alert, GCS 15, oriented to person, place, time, and situation. Cranial nerves II-XII grossly intact. Motor strength 5/5 in all extremities. Sensory grossly intact. Cerebellar exam normal. Normal gait. Psych: Awake, alert, with orientation to person, place and time. Behavior, mood, and affect are within normal limits. 18:05 Abdomen/GI: Inspection: obese Bowel sounds: normal, active, Palpation: mild abdominal tenderness, in the epigastric area, right upper quadrant and left upper quadrant, Vital Signs: 14:09 BP 139 / 64; Pulse 86; Resp 18; Temp 97.5; Pulse Ox 98% ; Weight 79.83 kg; Height 5 ft. ll1 2 in. ; Pain 10/10; 15:26 BP 116 / 71; Pulse 74; Resp 18; Pulse Ox 100% on R/A; mb9 17:42 BP 141 / 67; Pulse 70; Resp 16; Pulse Ox 100% ; mb9 14:09 Body Mass Index 32.19 (79.83 kg, 157.48 cm) ll1 14:09 Pain Scale: Adult ll1 MDM: 14:17 Patient medically screened. gb1 18:05 Differential diagnosis: acute coronary syndrome, appendicitis, bowel obstruction, gb1 coronary artery disease, cholecystitis, Cholelithiasis, diverticulitis, gastritis, gastroesophageal reflux disease, GI Bleed, Hepatitis, Irritable bowel syndrome, myocardia ischemia or infarction, non-specific abd pain, pancreatitis, Peptic Ulcer Disease, Perf. Duodenal Ulcer, Perf. Gastric Ulcer. Data reviewed: vital signs, nurses notes, lab test result(s), radiologic studies, CT scan. 09/04 14:16 Order name: CBC with Diff; Complete Time: 15:39 gb1 09/04 14:16 Order name: CMP; Complete Time: 15:58 gb1 09/04 14:16 Order name: Lipase; Complete Time: 15:58 gb1 09/04 14:16 Order name: Urinalysis w/ reflexes; Complete Time: 15:39 gb1 09/04 15:58 Order name: CT Abd/Pelvis - IV Contrast Only; Complete Time: 17:08 gb1 09/04 14:16 Order name: IV Saline Lock; Complete Time: 15:26 gb1 09/04 14:16 Order name: Labs collected and sent; Complete Time: 15:26 gb1 Administered Medications: 17:48 Drug: GI Cocktail with - (Maalox PO 30 ml, Lidocaine Mucous Membrane 2 % 20 mb9 ml, Phenobarbital-Belladonna PO 10 ml) PO once Route: PO; 17:49 Follow up: Response: No adverse reaction mb9 Disposition: 18:10 Chart complete. gb1 Disposition Summary: 09/04/23 18:04 Discharge Ordered Notes: Location: Home gb1 Problem: new gb1 Symptoms: have improved gb1 Condition: Stable gb1 Diagnosis - Gastritis, unspecified, without bleeding gb1 - Upper abdominal pain, unspecified gb1 Followup: gb1 - With: Private Physician - When: - Reason: Recheck today's complaints, Re-evaluation by your physician Discharge Instructions: - Discharge Summary Sheet gb1 - Gastritis, Adult, [id number] gb1 Forms: - Medication Reconciliation Form gb1 - Thank You Letter gb1 - Antibiotic Education gb1 - Prescription Opioid Use gb1 - Patient Portal Instructions gb1 - Leadership Thank You Letter gb1 Prescriptions: - Carafate 1 gram Oral Tablet - take 1 tablet ORAL route 4 times per day take on an empty stomach, beginning on gb1 waking and last dose at bedtime; 100 tablet; Refills: 0, Product Selection Permitted - Protonix 40 mg Oral Tablet - take 1 tablet ORAL route once daily; 30 tablet; Refills: 0, Product Selection gb1 Permitted Signatures: Dispatcher [employer] Travis Hearn RN RN ll1 Kathy Carl RN RN mb9 Rocio Hernández MD MD gb1
[2023-09-04 21:01] VITALS: TEMP 97.5; O2SAT 100
[2023-09-04 21:11] VITALS: BP 141/67
== END ==
LOC: ER 13:48
DX: K29.70 Gastritis, unspecified, without bleeding (principal); E11.9 Type 2 diabetes mellitus without complications; I10 Essential (primary) hypertension; Z95.1 Presence of aortocoronary bypass graft
CPT/HCPCS: 85025; 81001; 36415; 83690; 80053; 74177; 99284; Q9967

== ENCOUNTER 2023-12-25 13:16 | Emergency (ER) | payer OTHER ==
[2023-12-25] MEDS ORDERED: ACETAMINOPHEN 500 MG TAB ONE (13:49)
[2023-12-25] MEDS ORDERED: IBUPROFEN 400 MG TAB ONE (13:49)
--- NOTE | 2023-12-25 14:21 | RAD REPORT ---
EXAM DESCRIPTION: US - UPPER EXTREMITY VENOUS UNILATE - 12/25/2023 2:09 pm CLINICAL HISTORY: swelling;Pain Arm swelling and edema. COMPARISON: No comparisons FINDINGS: Right upper extremity venous system was interrogated with Doppler technique. Normal flow, compressibility and augmentation was noted. There is no DVT present. IMPRESSION: No evidence of right upper extremity deep venous thrombosis.
--- NOTE | 2023-12-25 14:30 | RAD REPORT ---
EXAM DESCRIPTION: RAD - Hand Right 3 View - 12/25/2023 2:20 pm CLINICAL HISTORY: PAIN COMPARISON: No comparisons FINDINGS: Moderate degenerative changes are present involving the radiocarpal joint. [id number] e degenerative changes of the DIP and PIP joints also present of the fingers. No fracture or dislocat ion. No aggressive marrow
--- NOTE | 2023-12-25 14:57 | ER ---
Nurse's Notes [facility] Name: Holly Leggett Age: 63 yrs Sex: Female : 1960 Arrival Date: 12/25/2023 Time: 13:16 Bed 9 Private MD: Diagnosis: Pain in right arm;Pain in right hand Presentation: 12/24 13:24 Chief complaint: Patient states: right arm pain x1 month and right hand pain x1.5 as6 weeks. Coronavirus screen: At this time, the client does not indicate any symptoms associated with coronavirus-19. Ebola Screen: No symptoms or risks identified at this time. Initial Sepsis Screen: Does the patient meet any 2 criteria? No. Patient's initial sepsis screen is negative. Does the patient have a suspected source of infection? No. Patient's initial sepsis screen is negative. Risk Assessment: Do you want to hurt yourself or someone else? Patient reports no desire to harm self or others. Onset of symptoms was November 2023. 13:24 Acuity: ANDRIY 4 as6 13:24 Method Of Arrival: Ambulatory as6 Triage Assessment: 13:26 General: Appears in no apparent distress. Behavior is calm, cooperative. Pain: as6 Complains of pain in right hand and right arm. Historical: - Allergies: 13:25 No Known Allergies; as6 - PMHx: 13:25 coronary atherosclerosis; diabetes mellitus; Hypertension; as6 - PSHx: 13:25 Coronary Angioplasty; hysterectomy; Stented artery; as6 - Immunization history:: Adult Immunizations up to date. - Infectious Disease History:: Denies. - Social history:: Smoking status: Patient denies any tobacco usage or history of. Vital Signs: 13:24 BP 136 / 73; Pulse 72; Resp 18 S; Temp 97.8(TE); Pulse Ox 98% on R/A; Weight 79.83 kg as6 (R); Height 5 ft. 2 in. (R); Pain 10/10; 15:06 BP 134 / 74; Pulse 74; Resp 18; Pulse Ox 99% ; Pain 4/10; cp4 13:24 Body Mass Index 32.19 (79.83 kg, 157.48 cm) as6 13:24 Pain Scale: Adult as6 15:06 Pain Scale: Adult cp4 ED Course: 13:19 Patient arrived in ED. im 13:21 Geovanny Crooks PA is PHCP. cp 13:21 Geovanny Clement MD is Attending Physician. cp 13:25 Triage completed. as6 13:26 Arm band placed on. as6 13:47 Karla Lincoln is Primary Nurse. cp4 14:11 UPPER EXTREMITY VENOUS UNILATE In Process Unspecified. EDMS 14:17 XRAY Hand RIGHT 3 View In Process Unspecified. EDMS Administered Medications: 13:54 Drug: Ibuprofen PO 800 mg PO once Route: PO; cp4 15:07 Follow up: Response: No adverse reaction cp4 13:54 Drug: Acetaminophen PO 1000 mg PO once Route: PO; cp4 15:06 Follow up: Response: No adverse reaction cp4 Outcome: 14:56 Discharge ordered by . cp 15:07 Patient left the ED. cp4 Signatures: Dispatcher [employer] EDMS Geovanny Crooks PA PA Sumanth Cline, RN RN as6 Joao Pazzel im Karla Lincoln cp4
--- NOTE | 2023-12-25 14:57 | EDPHYS ---
Physician Documentation [facility] Name: Holly Leggett Age: 63 yrs Sex: Female : 1960 Arrival Date: 12/25/2023 Time: 13:16 Bed 9 Private MD: ED Physician Geovanny Clement HPI: 12/24 13:45 This 63 yrs old Female presents to ER via Ambulatory with complaints of Arm cp Pain, Finger Injury. 13:45 The patient or guardian complains of pain, that is acute. The complaints affect the cp left arm and left hand. 13:45 Context: resulted from unknown cause. Onset: The symptoms/episode began/occurred pain cp to right arm started about 1 month ago with pain to right hand for past 1-2 weeks. Treatment prior to arrival includes: no previous treatment. Modifying factors: the symptoms are aggravated by movement, gripping. 13:45 Associated signs and symptoms: Pertinent positives: swelling, Pertinent negatives: cp decreased range of motion, deformity, fever, numbness, weakness, chest pain. Severity of symptoms: in the emergency department the symptoms are unchanged, despite home interventions. Historical: - Allergies: 13:25 No Known Allergies; as6 - PMHx: 13:25 coronary atherosclerosis; diabetes mellitus; Hypertension; as6 - PSHx: 13:25 Coronary Angioplasty; hysterectomy; Stented artery; as6 - Immunization history:: Adult Immunizations up to date. - Infectious Disease History:: Denies. - Social history:: Smoking status: Patient denies any tobacco usage or history of. ROS: 13:50 Constitutional: Negative for body aches, chills, fever, poor PO intake, cp 13:50 Eyes: Negative for injury, pain, redness, and discharge, cp 13:50 ENT: Negative for drainage from ear(s), ear pain, sore throat, difficulty swallowing, difficulty handling secretions, 13:50 Cardiovascular: Negative for chest pain, edema, palpitations, 13:50 Respiratory: Negative for cough, shortness of breath, wheezing, 13:50 Abdomen/GI: Negative for abdominal pain, nausea, vomiting, and diarrhea, 13:50 Back: Negative for pain at rest, pain with movement, radiated pain, 13:50 MS/extremity: Positive for pain, swelling, tenderness, of the right hand and right arm, Negative for injury or acute deformity, decreased range of motion, paresthesias, 13:50 Skin: Negative for cellulitis, rash, 13:50 Neuro: Negative for altered mental status, dizziness, headache, numbness, syncope, weakness, 13:50 All other systems are negative, Exam: 13:55 Constitutional: The patient appears in no acute distress, alert, awake, cp non-diaphoretic, non-toxic, well developed, well nourished, overweight 13:55 Head/Face: Normocephalic, atraumatic. cp 13:55 Eyes: Periorbital structures: appear normal, Conjunctiva: normal, no exudate, no injection, Sclera: no appreciated abnormality, Lids and lashes: appear normal, bilaterally, 13:55 ENT: External ear(s): are unremarkable, Nose: is normal, Mouth: Lips: moist, Oral mucosa: pink and intact, moist, Posterior pharynx: is normal, airway is patent, no erythema, no exudate, 13:55 Neck: ROM/movement: is normal, is supple, without pain, no range of motions limitations, no meningismus, no nuchal rigidity, 13:55 Chest/axilla: Inspection: normal, 13:55 Cardiovascular: Rate: normal, Pulses: Pulses are 2+ in right radial artery. 13:55 Respiratory: the patient does not display signs of respiratory distress, Respirations: normal, no use of accessory muscles, no retractions, labored breathing, is not present, Breath sounds: are clear throughout, no decreased breath sounds, no stridor, no wheezing, 13:55 Abdomen/GI: Inspection: abdomen appears normal, 13:55 Back: pain, is absent, ROM is normal, 13:55 Musculoskeletal/extremity: Extremities: grossly normal except: noted in the right arm: pain, tenderness, noted in the right hand: pain, swelling, worse pain and tenderness to dorsum of right thumb, no evidence of decreased ROM, deformity, ROM: full active range of motion, in the right hand and right arm, Perfusion: the extremity is normally perfused throughout, Sensation intact. grip wrapper strength equal and symmetric. 13:55 Skin: cellulitis, is not appreciated, no rash present. Vital Signs: 13:24 BP 136 / 73; Pulse 72; Resp 18 S; Temp 97.8(TE); Pulse Ox 98% on R/A; Weight 79.83 kg as6 (R); Height 5 ft. 2 in. (R); Pain 10/10; 15:06 BP 134 / 74; Pulse 74; Resp 18; Pulse Ox 99% ; Pain 4/10; cp4 13:24 Body Mass Index 32.19 (79.83 kg, 157.48 cm) as6 13:24 Pain Scale: Adult as6 15:06 Pain Scale: Adult cp4 MDM: 13:27 Patient medically screened. cp 14:55 Data reviewed: vital signs, nurses notes, radiologic studies, plain films, ultrasound, cp and as a result, I will continue to observe the patient. 14:55 Differential diagnosis: dislocation, open fracture, closed fracture, contusion, cp abrasion. I considered the following discharge prescriptions or medication management in the emergency department Medications were administered in the Emergency Department. See MAR. Medication response: US negative for DVT. will discharge to home for continued monitoring. 12/24 13:38 Order name: XRAY Hand RIGHT 3 View; Complete Time: 14:47 cp 12/24 14:51 Interpretation: Report reviewed. cp 12/24 13:42 Order name: UPPER EXTREMITY VENOUS UNILATE; Complete Time: 14:47 EDMS 12/24 14:48 Interpretation: Report reviewed. cp 12/24 14:48 Order name: Wrist Splint: right thumb spica; Complete Time: 15:02 cp Administered Medications: 13:54 Drug: Ibuprofen PO 800 mg PO once Route: PO; cp4 15:07 Follow up: Response: No adverse reaction cp4 13:54 Drug: Acetaminophen PO 1000 mg PO once Route: PO; cp4 15:06 Follow up: Response: No adverse reaction cp4 Disposition Summary: 12/25/23 14:56 Discharge Ordered Notes: Location: Home cp Problem: new cp Symptoms: have improved cp Condition: Stable cp Diagnosis - Pain in right arm cp - Pain in right hand cp Followup: cp - With: Private Physician - When: 1 week - Reason: pain continues Discharge Instructions: - Discharge Summary Sheet cp - Musculoskeletal Pain cp - De Quervain's Tenosynovitis cp - Hand Exercises cp - Hand Pain cp Forms: - Medication Reconciliation Form cp - Antibiotic Education cp - Prescription Opioid Use cp - Patient Portal Instructions cp - Leadership Thank You Letter cp Prescriptions: - Naprosyn 500 mg Oral tablet - take 1 tablet ORAL route 2 times per day take with food; 20 tablet; Refills: 0, cp Product Selection Permitted Signatures: Dispatcher [employer] EDMS Geovanny Crooks PA PA cp Slawson, Ashby, RN RN as6 Karla Lincoln cp4 Corrections: (The following items were deleted from the chart) 13:38 13:38 Extremity Venous Uni [email or web address] ordered. EDWV EDMS 12/25 13:44 13:43 Constitutional: Negative for cp cp
[2023-12-25 15:44] VITALS: TEMP 97.8
[2023-12-25 16:15] VITALS: BP 134/74; O2SAT 99
== END 2023-12-25 15:07 | disposition home or self-care (01) ==
LOC: ER 13:16
DX: M79.601 Pain in right arm (principal); M79.641 Pain in right hand
CPT/HCPCS: 93971; 99282

== ENCOUNTER 2024-04-09 19:10 | Emergency (ER) | payer OTHER ==
--- NOTE | 2024-04-09 20:10 | RAD REPORT ---
EXAM DESCRIPTION: Kj Single View04/09/2024 8:00 pm CLINICAL HISTORY: cough COMPARISON: 2021 FINDINGS: The lungs appear clear of acute infiltrate. The heart is normal size IMPRESSION: No acute abnormalities displayed
[2024-04-09 20:11] LABS: Absolute Basophils 0.1 K/uL (0-0.5); Absolute Eosinophils 0.4 K/uL (0-0.5); Absolute Lymphocytes (CBC) 3.9 K/uL (0.7-4.9); Absolute Monocytes 0.8 K/uL (0.1-1.3); Absolute Neutrophil 8.7 K/uL (1.8-8.0); Basophils % 0.6 % (0-1.3); Eosinophils % 2.8 % (0-4.4); Hematocrit 40.1 % (36.0-45.0); Hemoglobin 13.7 g/dL (12.0-15.0); Lymphocytes % 28.1 % (15.3-44.8); MCH 30.4 pg (27.0-35.0); MCHC 34.3 g/dL (32.0-36.0); MCV 88.8 fL (80-100); MPV 9.2 fL (7.6-11.3); Monocytes % 5.7 % (3.3-12.3); Neutrophils % 62.8 % (41.7-73.7); Platelets 377 thou/uL (152-406); RBC Red Blood Cell Count 4.51 M/uL (3.86-4.86); Red Cell Distribution Width 13.3 % (12.1-15.2)
--- NOTE | 2024-04-09 20:11 | RAD REPORT ---
EXAM DESCRIPTION: RAD - Foot Right 3 View - 04/09/2024 8:00 pm CLINICAL HISTORY: Right foot pain FINDINGS: No fracture or dislocation is seen Large plantar calcaneal spur 6 millimeter area sclerosis first distal phalanx likely benign
[2024-04-09 20:18] LABS: PT Prothrombin Time 11.2 SECONDS (9.4-12.5)
--- NOTE | 2024-04-09 20:19 | ER ---
Nurse's Notes [facility] Name: Holly Leggett Age: 64 yrs Sex: Female : 1960 Arrival Date: 04/09/2024 Time: 19:10 Bed 20 Private MD: Diagnosis: Cellulitis Right Fourth Toe , Infection Right fourth toenail, bilateral fourth toe onychomycosis Presentation: 04/09 19:21 Chief complaint: Patient states: "I noticed last night that my toe on my right foot mb9 started hurting and swelling.". Coronavirus screen: Vaccine status: Patient reports receiving the 2nd dose of the covid vaccine. Ebola Screen: No symptoms or risks identified at this time. Initial Sepsis Screen: Does the patient meet any 2 criteria? No. Patient's initial sepsis screen is negative. Does the patient have a suspected source of infection? No. Patient's initial sepsis screen is negative. Risk Assessment: Do you want to hurt yourself or someone else? Patient reports no desire to harm self or others. Onset of symptoms was April 09, 2024. 19:21 Acuity: ANDRIY 3 mb9 19:21 Method Of Arrival: Ambulatory mb9 Triage Assessment: 19:24 General: Appears in no apparent distress. Behavior is calm, cooperative. Pain: mb9 Complains of pain in right foot Pain does not radiate. Pain currently is 10 out of 10 on a pain scale. Quality of pain is described as throbbing, Pain began suddenly, Is continuous, Alleviated by exercise, repositioning. EENT: No signs and/or symptoms were reported regarding the EENT system. Neuro: Level of Consciousness is awake, alert, obeys commands, Oriented to person, place, time, situation, Appropriate for age. Cardiovascular: Patient's skin is warm and dry. Respiratory: Airway is patent Respiratory effort is even, unlabored. GI: No signs and/or symptoms were reported involving the gastrointestinal system. : No signs and/or symptoms were reported regarding the genitourinary system. Derm: Skin is pink, warm \\T\\ dry. Musculoskeletal: Swelling present in right foot. Historical: - PMHx: 19:18 coronary atherosclerosis; diabetes mellitus; Hypertension; mb9 - PSHx: 19:18 Coronary Angioplasty; hysterectomy; Stented artery; mb9 - Immunization history:: Adult Immunizations up to date. - Infectious Disease History:: Denies. - Social history:: Smoking status: Patient denies any tobacco usage or history of. - Family history:: not pertinent. Screenin:51 [facility] ED Fall Risk Assessment (Adult) History of falling in the last 3 months, al5 including since admission No falls in past 3 months (0 pts) Confusion or Disorientation No (0 pts) Intoxicated or Sedated No (0 pts) Impaired Gait No (0 pts) Mobility Assist Device Used No (0 pt) Altered Elimination No (0 pt) Score/Fall Risk Level 0 - 2 = Low Risk Oriented to surroundings, Maintained a safe environment, Hourly rounding (assess needs \\T\\ fall precautionary measures) done. Abuse screen: Denies threats or abuse. Denies injuries from another. Nutritional screening: No deficits noted. Tuberculosis screening: No symptoms or risk factors identified. Assessment: 20:50 Reassessment: Patient appears in no apparent distress at this time. No changes from al5 previously documented assessment. Patient and/or family updated on plan of care and expected duration. Pain level reassessed. Patient is alert, oriented x 3, equal unlabored respirations, skin warm/dry/pink. patient being discharged home with antibiotics, antifungal, and pain medication. General:. Vital Signs: 19:21 BP 147 / 71; Pulse 83; Resp 18; Temp 98; Pulse Ox 100% ; Weight 83.91 kg; Height 5 ft. mb9 2 in. ; Pain 10/10; 20:52 BP 138 / 68; Pulse 80; Resp 18; Pulse Ox 100% on R/A; al5 19:21 Body Mass Index 33.84 (83.91 kg, 157.48 cm) mb9 19:21 Pain Scale: Adult mb9 ED Course: 19:14 Patient arrived in ED. mr 19:15 Geovanny Clement MD is Attending Physician. giovana 19:18 Arm band placed on. mb9 19:23 Triage completed. mb9 20:01 XRAY Chest (1 view) In Process Unspecified. EDMS 20:02 Foot Right 3 View XRAY In Process Unspecified. EDMS 20:09 Attending Physician role handed off by Geovanny Clement MD sp4 20:09 Quan Judd MD is Attending Physician. sp4 20:16 Client placed on continuous cardiac and pulse oximetry monitoring. NIBP monitoring kmf applied. cafeteria monitor on. 20:16 Initial lab(s) drawn, by me, sent to lab. kmf 20:16 EKG done, by ED staff, reviewed by Quan Judd MD. kmf 20:18 Hoang Trujillo DO is Referral Physician. sp4 20:18 Missed attempt(s): 20 gauge Bleeding controlled, band aid applied, catheter tip intact. kmf 20:19 Inserted saline lock: 22 gauge in left wrist, using aseptic technique. Blood collected. kmf Flushed with 10 mL NS. 20:29 Britt Nathan, RN is Primary Nurse. al5 20:51 Provided Education on: discharge follow up. al5 20:51 Patient has correct armband on for positive identification. Bed in low position. Call al5 light in reach. Side rails up X 1. 20:52 No provider procedures requiring assistance completed. IV discontinued, intact, al5 bleeding controlled, No redness/swelling at site. Pressure dressing applied. Administered Medications: 20:36 Not Given (Physician Discretion): fentanyl (pf)50 mcg IVP once sp4 20:36 CANCELLED (Physician Discretion): hydrocodone-acetaminophen5 mg-325 mg 2 tabs PO once sp4 20:48 Drug: Ibuprofen PO 800 mg PO once Route: PO; al5 20:48 Follow up: Response: No adverse reaction; Medication administered at discharge. al5 20:49 Not Given (Physician Discretion): ns 0.9% 500 ml IV at bolus once al5 20:49 Drug: Ondansetron IVP 4 mg IVP once; over 2 minutes {Note: gave PO instead per MD.} al5 Route: IVP; Site: Other; 20:50 Follow up: Response: No adverse reaction; Medication administered at discharge. al5 20:49 Drug: Cephalexin PO 500 mg PO once Route: PO; al5 20:49 Follow up: Response: No adverse reaction; Medication administered at discharge. al5 20:50 Drug: Trimethoprim-Sulfamethoxazole PO (160 mg-800 mg (DS) 1 tablet PO once Route: PO; al5 20:50 Follow up: Response: No adverse reaction; Medication administered at discharge. al5 Medication: 20:51 VIS not applicable for this client. al5 Outcome: 20:19 Discharge ordered by . sp4 20:52 Discharged to home ambulatory, al5 20:52 Condition: good 20:52 Discharge instructions given to patient, Instructed on discharge instructions, follow up and referral plans. medication usage, Demonstrated understanding of instructions, follow-up care, medications, Prescriptions given X 4, 20:53 Patient left the ED. al5 Signatures: Dispatcher [employer] EDMS Geovanny Clement MD MD cha Rivera, Mary, Reg Reg mr Carr, Kathy Gan, RN RN mb9 Quan Judd MD MD sp4 Adelita Lujan [facility] Britt Nathan, ROS RN al5
--- NOTE | 2024-04-09 20:19 | EDPHYS ---
Physician Documentation [facility] Name: Holly Leggett Age: 64 yrs Sex: Female : 1960 Arrival Date: 04/09/2024 Time: 19:10 Bed 20 Private MD: ED Physician Quan Judd HPI: 04/09 19:25 This 64 yrs old Female presents to ER via Ambulatory with complaints of giovana Infected Toe. 19:25 The patient presents with pain, that is acute, swelling, tenderness. The complaints giovana affect the right foot, Right fourth toenail. Historical: - PMHx: 19:18 coronary atherosclerosis; diabetes mellitus; Hypertension; mb9 - PSHx: 19:18 Coronary Angioplasty; hysterectomy; Stented artery; mb9 - Immunization history:: Adult Immunizations up to date. - Infectious Disease History:: Denies. - Social history:: Smoking status: Patient denies any tobacco usage or history of. - Family history:: not pertinent. ROS: 19:25 Constitutional: Negative for fever, chills, and weight loss, Eyes: Negative for injury, giovana pain, redness, and discharge, ENT: Negative for injury, pain, and discharge, Neck: Negative for injury, pain, and swelling, Cardiovascular: Negative for chest pain, palpitations, and edema, Respiratory: Negative for shortness of breath, cough, wheezing, and pleuritic chest pain, Abdomen/GI: Negative for abdominal pain, nausea, vomiting, diarrhea, and constipation, Back: Negative for injury and pain, : Negative for injury, bleeding, discharge, and swelling, Skin: Negative for injury, rash, and discoloration, Neuro: Negative for headache, weakness, numbness, tingling, and seizure, Psych: Negative for depression, anxiety, suicide ideation, homicidal ideation, and hallucinations, Allergy/Immunology: Negative for hives, rash, and allergies, Endocrine: Negative for neck swelling, polydipsia, polyuria, polyphagia, and marked weight changes, Hematologic/Lymphatic: Negative for swollen nodes, abnormal bleeding, and unusual bruising, 19:25 MS/extremity: Positive for erythema, pain, warmth, of the plantar aspect of right fourth toe and Right fourth toenail, Exam: 19:25 Constitutional: This is a well developed, well nourished patient who is awake, alert, giovana and in no acute distress. Head/Face: Normocephalic, atraumatic. Eyes: Pupils equal round and reactive to light, extra-ocular motions intact. Lids and lashes normal. Conjunctiva and sclera are non-icteric and not injected. Cornea within normal limits. Periorbital areas with no swelling, redness, or edema. ENT: Nares patent. No nasal discharge, no septal abnormalities noted. Tympanic membranes are normal and external auditory canals are clear. Oropharynx with no redness, swelling, or masses, exudates, or evidence of obstruction, uvula midline. Mucous membranes moist. Neck: Trachea midline, no thyromegaly or masses palpated, and no cervical lymphadenopathy. Supple, full range of motion without nuchal rigidity, or vertebral point tenderness. No Meningismus. Chest/axilla: Normal chest wall appearance and motion. Nontender with no deformity. No lesions are appreciated. Cardiovascular: Regular rate and rhythm with a normal S1 and S2. No gallops, murmurs, or rubs. Normal PMI, no JVD. No pulse deficits. Respiratory: Lungs have equal breath sounds bilaterally, clear to auscultation and percussion. No rales, rhonchi or wheezes noted. No increased work of breathing, no retractions or nasal flaring. Abdomen/GI: Soft, non-tender, with normal bowel sounds. No distension or tympany. No guarding or rebound. No evidence of tenderness throughout. Back: No spinal tenderness. No costovertebral tenderness. Full range of motion. Female : Normal external genitalia. Skin: Warm, dry with normal turgor. Normal color with no rashes, no lesions, and no evidence of cellulitis. Neuro: Awake and alert, GCS 15, oriented to person, place, time, and situation. Cranial nerves II-XII grossly intact. Motor strength 5/5 in all extremities. Sensory grossly intact. Cerebellar exam normal. Normal gait. Psych: Awake, alert, with orientation to person, place and time. Behavior, mood, and affect are within normal limits. 19:25 Musculoskeletal/extremity: ROM: full active range of motion, full passive range of motion, limited active range of motion due to pain, limited passive range of motion due to pain, in the plantar aspect of right fourth toe and Right fourth toenail, 20:05 ECG was reviewed by the Attending Physician. [facility] Vital Signs: 19:21 BP 147 / 71; Pulse 83; Resp 18; Temp 98; Pulse Ox 100% ; Weight 83.91 kg; Height 5 ft. mb9 2 in. ; Pain 10/10; 20:52 BP 138 / 68; Pulse 80; Resp 18; Pulse Ox 100% on R/A; al5 19:21 Body Mass Index 33.84 (83.91 kg, 157.48 cm) mb9 19:21 Pain Scale: Adult mb9 MDM: 19:15 Patient medically screened. [facility] 19:28 Differential diagnosis: fracture, foreign body, arthritis, gout, cellulitis. Data [facility] reviewed: vital signs, nurses notes, lab test result(s), EKG, radiologic studies, plain films. Consideration of Admission/Observation Escalation of care including admission/observation considered. Independent interpretation of the following test(s) in the Emergency Department X-Ray: My interpretation is right foot. Test considered but Not performed: MRI: no mri right foot. Historians other than the Patient: pt well informed. Care significantly affected by the following chronic conditions: Diabetes, Hypertension, Obesity. Counseling: I had a detailed discussion with the patient and/or guardian regarding the historical points, exam findings, and any diagnostic results supporting the discharge/admit diagnosis, lab results, radiology results, the need for outpatient follow up, for definitive care, a family practitioner, a general surgeon. 04/09 19:17 Order name: Basic Metabolic Panel; Complete Time: 20:36 [facility] 04/09 19:17 Order name: CBC with Diff; Complete Time: 20:17 [facility] 04/09 19:17 Order name: LFT's; Complete Time: 20:36 [facility] 04/09 19:17 Order name: Magnesium; Complete Time: 20:36 [facility] 04/09 19:17 Order name: NT PRO-BNP; Complete Time: 20:36 [facility] 04/09 19:17 Order name: PT-INR; Complete Time: 20:26 [facility] 04/09 19:17 Order name: Troponin HS; Complete Time: 20:36 [facility] 04/09 19:17 Order name: XRAY Chest (1 view); Complete Time: 20:17 [facility] 04/09 19:20 Order name: Foot Right 3 View XRAY; Complete Time: 20:17 [facility] 04/09 19:17 Order name: Cardiac monitoring; Complete Time: 20:13 [facility] 04/09 19:17 Order name: EKG - Nurse/Tech; Complete Time: 20:50 [facility] 04/09 19:17 Order name: IV Saline Lock; Complete Time: 20:16 [facility] 04/09 19:17 Order name: Labs collected and sent; Complete Time: 20:50 [facility] 04/09 19:17 Order name: O2 Per Protocol; Complete Time: 20:50 [facility] 04/09 19:17 Order name: O2 Sat Monitoring; Complete Time: 20:50 [facility] EC:05 Rate is 79 beats/min. Rhythm is regular. QRS [place] is Normal. MS interval is normal. QRS giovana interval is normal. QT interval is normal. No Q waves. T waves are Normal. No ST changes noted. Clinical impression: Normal ECG and No evidence of ischemia. Interpreted by me. Reviewed by me. Administered Medications: 20:36 Not Given (Physician Discretion): fentanyl (pf)50 mcg IVP once sp4 20:36 CANCELLED (Physician Discretion): hydrocodone-acetaminophen5 mg-325 mg 2 tabs PO once sp4 20:48 Drug: Ibuprofen PO 800 mg PO once Route: PO; al5 20:48 Follow up: Response: No adverse reaction; Medication administered at discharge. al5 20:49 Not Given (Physician Discretion): ns 0.9% 500 ml IV at bolus once al5 20:49 Drug: Ondansetron IVP 4 mg IVP once; over 2 minutes {Note: gave PO instead per MD.} al5 Route: IVP; Site: Other; 20:50 Follow up: Response: No adverse reaction; Medication administered at discharge. al5 20:49 Drug: Cephalexin PO 500 mg PO once Route: PO; al5 20:49 Follow up: Response: No adverse reaction; Medication administered at discharge. al5 20:50 Drug: Trimethoprim-Sulfamethoxazole PO (160 mg-800 mg (DS) 1 tablet PO once Route: PO; al5 20:50 Follow up: Response: No adverse reaction; Medication administered at discharge. al5 Disposition Summary: 04/09/24 20:19 Discharge Ordered Problem: new sp4 Symptoms: have improved sp4 Condition: Stable sp4 Diagnosis - Cellulitis Right Fourth Toe , Infection Right fourth toenail, bilateral fourth sp4 toe onychomycosis Followup: sp4 - With: Prezas, Hoang, DO - When: 7 - 10 days - Reason: Recheck today's complaints Discharge Instructions: - Discharge Summary Sheet sp4 - Fungal Nail Infection sp4 Forms: - Work release form sp4 - Patient Portal Instructions sp4 Prescriptions: - terbinafine HCl 250 mg Oral tablet - take 1 tablet ORAL route daily for 4 wks; 30 tablet; Refills: 0, Product sp4 Selection Permitted - Cephalexin 250 mg Oral Capsule - take 1 capsule ORAL route every 8 hours for 10 days; 30 capsule; Refills: 0, sp4 Product Selection Permitted - Tramadol 50 mg Oral tablet - take 1 tablet ORAL route every 8 hours as needed; 20 tablet; Refills: 0, sp4 Product Selection Permitted - Bactrim DS 800-160 mg Oral Tablet - take 1 tablet ORAL route every 12 hours for 10 days; 20 tablet; Refills: 0, sp4 Product Selection Permitted Signatures: Dispatcher [employer] EDGeovanny Wallace MD MD cha Wilkerson, Kathy Gan, RN RN mb9 Quan Judd MD MD sp4 Britt Nathan RN RN al5 Corrections: (The following items were deleted from the chart) 19:20 19:20 Foot Right 3 View+RAD.RAD.BRZ ordered. EDMA EDMS 20:36 20:18 HYDROcodone-acetaminophen PO 5 mg-325 mg 2 tabs PO once ordered. sp4 sp4
[2024-04-09 20:33] LABS: ALT/SGPT 49 U/L (13-56); AST/SGOT 29 U/L (15-37); Albumin 3.7 g/dL (3.4-5.0); Albumin/Globulin Ratio 0.9 (1.1-1.8); Alkaline Phosphatase 142 U/L (45-117); Anion Gap 15.9 mEq/L (5.0-15.0); BUN Blood Urea Nitrogen 21 mg/dL (7-18); Bicarbonate 23 mEq/L (21-32); Bilirubin Total 0.5 mg/dL (0.2-1.0); Globulin 4.1 g/dL (2.3-3.5); Glomerular Filtration Rate 95 ml/min (=/>90); Glucose Level 126 mg/dL (74-106); Magnesium 2.2 mg/dL (1.6-2.4); NT PRO-BNP 35 pg/mL (<125); Potassium 3.9 mEq/L (3.5-5.1); Protein, Total 7.8 g/dL (6.4-8.2); Sodium Level 140 mEq/L (136-145); Troponin High Sensitivity 3.6 pg/mL (<58.9)
[2024-04-09 20:35] LABS: Bilirubin Direct < 0.2 mg/dL (0-0.2); Bilirubin Indirect, Calculated 0.3 mg/dL (0.2-0.8)
[2024-04-09] MEDS ORDERED: CEPHALEXIN 250 MG CAP ONE (20:39)
[2024-04-09] MEDS ORDERED: SMZ./TMP. 800/160 MG TABLET ONE (20:39)
[2024-04-09] MEDS ORDERED: IBUPROFEN 400 MG TAB ONE (20:40)
[2024-04-09] MEDS ORDERED: ONDANSETRON 4 MG (ODT) TAB ONE (20:40)
[2024-04-09 21:09] VITALS: TEMP 98; O2SAT 100
[2024-04-09 21:12] VITALS: BP 138/68
== END 2024-04-09 20:53 | disposition home or self-care (01) ==
LOC: ER 19:10
DX: L03.031 Cellulitis of right toe (principal); B35.1 Tinea unguium
CPT/HCPCS: 85025; 80048; 36415; 83735; 85610; 80076; 84484; 83880; 71045; 73630; Q0162; 93005

== ENCOUNTER 2024-12-31 06:28 | Inpatient (IN) | payer OTHER ==
[2024-12-31] MEDS ORDERED: MORPHINE 4 MG/ML SYR ONE ×2 (06:58→09:21)
[2024-12-31] MEDS ORDERED: ONDANSETRON 4 MG/2 ML VIAL ONE ×2 (06:58→09:21)
[2024-12-31 07:12] LABS: Absolute Basophils 0.1 K/uL (0-0.5); Absolute Eosinophils 0.1 K/uL (0-0.5); Absolute Lymphocytes (CBC) 1.9 K/uL (0.7-4.9); Absolute Monocytes 1.3 K/uL (0.1-1.3); Absolute Neutrophil 14.9 K/uL (1.8-8.0); Basophils % 0.4 % (0-1.3); Eosinophils % 0.8 % (0-4.4); Hematocrit 42.8 % (36.0-45.0); Hemoglobin 14.7 g/dL (12.0-15.0); Lymphocytes % 10.2 % (15.3-44.8); MCH 29.9 pg (27.0-35.0); MCHC 34.3 g/dL (32.0-36.0); MCV 87.1 fL (80-100); MPV 9.4 fL (7.6-11.3); Neutrophils % 81.6 % (41.7-73.7); Platelets 329 thou/uL (152-406); RBC Red Blood Cell Count 4.92 M/uL (3.86-4.86); Red Cell Distribution Width 13.2 % (12.1-15.2)
[2024-12-31 07:27] LABS: Albumin 3.5 g/dL (3.4-5.0); Albumin/Globulin Ratio 0.8 (1.1-1.8); Anion Gap 11.7 mEq/L (5.0-15.0); Bilirubin Total 1.4 mg/dL (0.2-1.0); Globulin 4.6 g/dL (2.3-3.5); Potassium 3.7 mEq/L (3.5-5.1); Protein, Total 8.1 g/dL (6.4-8.2)
[2024-12-31 07:37] LABS: Specific Gravity 1.027 (1.005-1.030); Urine Bacteria <20 /HPF (<20); Urine Bilirubin NEGATIVE (Negative); Urine Blood Negative (Negative); Urine Clarity Extremely Turbid (Clear); Urine Color Yellow (Yellow); Urine Crystals Unidentified Few /HPF (None Seen); Urine Glucose NEGATIVE (Negative); Urine Ketones NEGATIVE (Negative); Urine Micro Reflex YN NO BILL MICROSCOPIC; Urine Mucus Slight /HPF (None Seen); Urine Nitrite NEGATIVE (Negative); Urine Protein 1+ (Negative); Urine RBC <5 /HPF (None Seen); Urine Urobilinogen 1+ (Normal)
--- NOTE | 2024-12-31 08:32 | RAD REPORT ---
EXAMINATION: CT Abdomen Pelvis W Contrast CLINICAL INDICATION: Female, 64 years old. ABD PAIN TECHNIQUE: CT abdomen and pelvis was performed, after the administration of IV contrast (100 mL Isovu e 300), as per department protocol. Axial, sagittal and coronal reconstructions were obtained. One or more of the following dose reduction techniques were used: Automated exposure control, adjustment of the mA and kV according to patient size, and iterative reconstruction. Unless otherwise specified, incidental findings do not require dedicated imaging follow-up. COMPARISON: 09/04/2023 FINDINGS: LOWER CHEST: The visualized lung bases are clear. LIVER: Normal in size and contour. No focal lesion. BILIARY SYSTEM: No radiopaque gallstones. Mild wall thickening and pericholecystic fluid. Fold at the gallbladder fundus. SPLEEN: Normal size. No focal lesion. PANCREAS: No mass, ductal dilation, or juan-pancreatic fluid. ADRENALS: Normal; no mass. KIDNEYS: Normal size and contour. No hydronephrosis. URINARY BLADDER: Decompressed limiting evaluation. GASTROINTESTINAL TRACT: No evidence of free air, significant intra-abdominal free fluid, bowel obstru ction or abscess. APPENDIX: Normal appendix. LYMPH NODES: No lymphadenopathy. MUSCULOSKELETAL: No acute or suspicious osseous abnormality. 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 This is stable. IMPRESSION: Gallbladder wall thickening and pericholecystic fluid. Please correlate clinically for acute cholecys titis.
[2024-12-31] MEDS ORDERED: NA CHLORIDE 0.9% 0 ML ONE (08:46)
[2024-12-31] MEDS ORDERED: PIPERACIL/TAZO 3.375 GM VIAL IV ONE (08:46)
[2024-12-31] MEDS ORDERED: NA CHLORIDE 0.9% 1,000 ML ONE (08:47)
[2024-12-31 09:39] LABS: PT Prothrombin Time 12.6 SECONDS (10-13.0); PTT, Activated Partial Thromb 31.3 SECONDS (27.2-37.4); Protime INR 1.11
--- NOTE | 2024-12-31 10:11 | RAD REPORT ---
EXAMINATION: US Abdomen Exam Limited CLINICAL HISTORY: ruq pain COMPARISON: None. TECHNIQUE: Limited upper abdominal grayscale and color flow sonographic images. FINDINGS: Gallbladder: Mild pericholecystic fluid. Wall appears mildly thickened especially along the body, to 4 mm. Reportedly positive sonographic Arrieta's sign. No echogenic calculi. Bile ducts: No intrahepatic or extrahepatic biliary dilatation. Common bile duct measures 3 mm. Liver: Visualized portions of the liver demonstrate normal echogenicity with no suspicious findings. Fluid: No ascites. IMPRESSION: Findings concerning for acute cholecystitis. No evidence of gallstones. No intra or extrahepatic biliary ductal dilation.
--- NOTE | 2024-12-31 10:27 | EDPHYS ---
Physician Documentation [facility] Name: Holly Leggett Age: 64 yrs Sex: Female : 1960 Arrival Date: 12/31/2024 Time: 06:28 Bed 20 Private MD: ED Physician Napoleon Chen HPI: 12/31 07:09 This 64 yrs old Female presents to ER via Ambulatory with complaints of rt Abdominal Pain. 07:09 Patient presents to the ED with abdominal pain. The patient reports that she had a rt brief episode of the abdominal pain described as a cramping sensation yesterday which resolved. Patient states that about 1 AM, she had a return of the abdominal pain. States that is generalized, radiates to the back and is cramping in nature. She has nausea without vomiting. Denies urinary symptoms, acute complaints, symptoms are moderate in severity, no other aggravating or alleviating factors.. Historical: - Allergies: 06:48 No Known Allergies; al5 - Home Meds: 06:48 Trulicity subcutaneous [Active]; al5 - PMHx: 06:48 coronary atherosclerosis; diabetes mellitus; Hypertension; al5 - PSHx: 06:48 Coronary Angioplasty; hysterectomy; Stented artery; al5 - Immunization history:: Adult Immunizations up to date. - Infectious Disease History:: Denies. - Social history:: Smoking status: Patient denies any tobacco usage or history of. ROS: 07:11 Constitutional: Negative for fever, chills, and weight loss, Cardiovascular: Negative rt for chest pain, palpitations, and edema, Respiratory: Negative for shortness of breath, cough, wheezing, and pleuritic chest pain, MS/Extremity: Negative for injury and deformity, Skin: Negative for injury, rash, and discoloration, Neuro: Negative for headache, weakness, numbness, tingling, and seizure, 07:11 Abdomen/GI: Positive for abdominal pain, nausea, Exam: 07:11 Constitutional: This is a well developed, well nourished patient who is awake, alert, rt and in no acute distress. Head/Face: Normocephalic, atraumatic. Chest/axilla: Normal chest wall appearance and motion. Nontender with no deformity. No lesions are appreciated. Cardiovascular: Regular rate and rhythm with a normal S1 and S2. No gallops, murmurs, or rubs. Normal PMI, no JVD. No pulse deficits. Respiratory: Lungs have equal breath sounds bilaterally, clear to auscultation and percussion. No rales, rhonchi or wheezes noted. No increased work of breathing, no retractions or nasal flaring. Skin: Warm, dry with normal turgor. Normal color with no rashes, no lesions, and no evidence of cellulitis. MS/ Extremity: Pulses equal, no cyanosis. Neurovascular intact. Full, normal range of motion. 07:11 Abdomen/GI: Mild tenderness diffusely without rebound, guarding, distention, 09:23 ECG was reviewed by the Attending Physician. rt Vital Signs: 06:42 BP 122 / 68; Pulse 96; Resp 16 S; Temp 97.9(T); Pulse Ox 98% on R/A; Weight 81.65 kg; al5 Height 5 ft. 2 in. ; Pain 10/10; 08:38 BP 125 / 68; Pulse 69; Resp 16 S; Pulse Ox 96% on R/A; kc6 12:20 BP 119 / 67; Pulse 75; Resp 17 S; Pulse Ox 91% on R/A; kc6 13:39 BP 118 / 66; Pulse 80; Resp 16 S; Pulse Ox 98% on R/A; kc6 06:42 Body Mass Index 32.92 (81.65 kg, 157.48 cm) al5 06:42 Pain Scale: Adult al5 MDM: 07:02 Medical Screening Exam initiated rt 16:06 Differential Diagnosis Cholecystitis, pancreatitis. Data reviewed: vital signs, nurses rt notes, lab test result(s), EKG, radiologic studies. Consideration of Admission/Observation Patient was admitted/placed on observation. Management of patient was discussed with the following: Manager Wound: Discussed with general surgery on-call, recommends MRCP, initially possible. I considered the following discharge prescriptions or medication management in the emergency department Medications were administered in the Emergency Department. See MAR. Independent interpretation of the following test(s) in the Emergency Department CT Scan: My interpretation is Distended gallbladder seen on my interpretation of CT scan images. Care significantly affected by the following chronic conditions: Diabetes, Hypertension. Counseling: I had a detailed discussion with the patient and/or guardian regarding the historical points, exam findings, and any diagnostic results supporting the discharge/admit diagnosis, lab results, radiology results, the need for further work-up and treatment in the hospital. Response to treatment: the patient's symptoms have markedly improved after treatment. 12/31 06:51 Order name: CBC with Diff; Complete Time: 07:43 al5 12/31 06:51 Order name: CMP; Complete Time: 07:43 al5 12/31 06:51 Order name: Lipase; Complete Time: 07:43 al5 12/31 07:06 Order name: UA W/ Microscopic; Complete Time: 07:43 rt 12/31 08:43 Order name: Blood Culture Adult (2) rt 12/31 08:43 Order name: Lactate w/ 2H reflex if indic.; Complete Time: 09:55 rt 12/31 08:43 Order name: Protime (+inr); Complete Time: 09:55 rt 12/31 08:43 Order name: Ptt, Activated; Complete Time: 09:55 rt 12/31 10:21 Order name: Troponin High Sensitivity; Complete Time: 11:25 rt 12/31 13:00 Order name: CBC with Automated Diff EDMS /07 13:00 Order name: CBC with Automated Diff EDMS /07 13:01 Order name: CBC with Automated Diff EDMS / 13:01 Order name: CBC with Automated Diff EDMS 05/07 13:01 Order name: Comprehensive Metabolic Panel EDMS 05/ 13:01 Order name: Comprehensive Metabolic Panel EDMS / 13:01 Order name: Comprehensive Metabolic Panel EDMS 12/31 13:01 Order name: Comprehensive Metabolic Panel EDMS 05/07 13:01 Order name: Magnesium EDMS 05/07 13:01 Order name: Magnesium EDMS 05/07 13:01 Order name: Magnesium EDMS 05/07 13:01 Order name: Magnesium EDMS 05/07 13:01 Order name: Phosphorus EDMS 05/07 13:01 Order name: Phosphorus EDMS 05/07 13:01 Order name: Phosphorus EDMS 05/07 13:01 Order name: Phosphorus EDMS 05/07 07:06 Order name: CT Abd/Pelvis - IV Contrast Only; Complete Time: 08:37 rt 12/31 08:43 Order name: US Abdomen Limited; Complete Time: 10:18 rt 12/31 10:33 Order name: Cholangiogram; Complete Time: 15:42 EDMS 12/31 08:43 Order name: EKG; Complete Time: 08:43 rt 12/31 13:00 Order name: CONS Physician Consult EDMS 12/31 06:51 Order name: IV Saline Lock; Complete Time: 07:03 al5 12/31 06:51 Order name: Labs collected and sent; Complete Time: 07:03 al5 12/31 08:43 Order name: Accucheck; Complete Time: 08:43 rt 12/31 08:43 Order name: Cardiac monitoring; Complete Time: 08:43 rt 12/31 08:43 Order name: EKG - Nurse/Tech; Complete Time: 08:58 rt 12/31 08:43 Order name: IV Saline Lock - Large Bore; Complete Time: 08:43 rt 12/31 08:43 Order name: O2 Per Protocol; Complete Time: 08:43 rt 12/31 08:43 Order name: O2 Sat Monitoring; Complete Time: 08:43 rt 12/31 08:43 Order name: Vital Signs; Complete Time: 08:44 rt 12/31 10:41 Order name: Labs - recollect needed: recollect troponin; Complete Time: 11:00 bd EC:23 Rate is 70 beats/min. Rhythm is regular, Normal Sinus Rhythm with No ectopy. QRS [place] rt is Normal. [place] interval is normal. QRS interval is normal. QT interval is normal. No Q waves. No ST changes noted. Interpreted by me. Administered Medications: 07:34 Drug: Ondansetron IVP 4 mg IVP once; over 2 minutes Route: IVP; Site: left antecubital; kc6 07:57 Follow up: Response: No adverse reaction [facility] 07:34 Drug: morphine IVP or IV 4 mg IVP once over 4 mins Route: IVP; Infused Over: 4 mins; kc6 Site: left antecubital; 07:57 Follow up: Response: No adverse reaction kc6 09:24 Drug: NS 0.9% IV 1000 ml IV at 1000 ml once; to be given as a bolus over 60 minutes kc6 Route: IV; Rate: 1000 ml; Site: left antecubital; 13:39 Follow up: Response: No adverse reaction; IV Status: Completed infusion; IV Intake: kc6 1000ml 09:24 Drug: Piperacillin-Tazobactam IVPB 3.375 grams IVPB once over 60 mins; (mix in NS 100 kc6 mL) Route: IVPB; Infused Over: 60 mins; Site: left antecubital; 09:56 Follow up: Response: No adverse reaction; IV Status: Completed infusion; IV Intake: kc6 100ml 09:32 Drug: morphine IVP or IV 4 mg IVP once over 4 mins Route: IVP; Infused Over: 4 mins; kc6 Site: left antecubital; 09:56 Follow up: Response: No adverse reaction; Pain is decreased; RASS: Alert and Calm (0) kc6 09:32 Drug: Ondansetron IVP 4 mg IVP once; over 2 minutes Route: IVP; Site: left antecubital; kc6 09:56 Follow up: Response: No adverse reaction; Nausea is decreased; Vomiting decreased kc6 Disposition Summary: 12/31/24 10:26 Hospitalization Ordered Notes: Hospitalization Status: Inpatient Admission rt Provider: Yoan Vance rt [facility] rt Condition: Stable rt Problem: new rt Symptoms: have improved rt Bed/Room Type: Standard rt Room Assignment: 214(12/31/24 15:07) hb Diagnosis - Acalculous cholecystitis rt Forms: - Medication Reconciliation Form rt - SBAR form rt - Leadership Thank You Letter rt Signatures: Dispatcher [employer] EDShyann Tony Heather, RN ROS hb Kaia Plasencia RN RN kc6 Napoleon Chen MD MD rt Britt Nathan RN RN al5 Corrections: (The following items were deleted from the chart) 06:52 06:52 CBC+H.LAB.BRZ ordered. EDMS EDMS 06:52 06:52 COMPREHENSIVE METABOLIC PANEL+C.LAB.BRZ ordered. EDMS EDMS 06:52 06:52 LIPASE+C.LAB.BRZ ordered. EDMS EDMS 15:07 10:26 rt hb
--- NOTE | 2024-12-31 10:27 | ER ---
Nurse's Notes [facility] Name: Holly Leggett Age: 64 yrs Sex: Female : 1960 Arrival Date: 12/31/2024 Time: 06:28 Bed 20 Private MD: Diagnosis: Acalculous cholecystitis Presentation: 12/31 06:42 Chief complaint: Patient states: ABDOMINAL PAIN CRAMPING SINCE ABOUT FIVE HOURS AGO . al5 PAIN RADIATES TO THE BACK. 06:42 Coronavirus screen: Client denies travel out of the [place] in the last 14 days. Ebola al5 Screen: No symptoms or risks identified at this time. Initial Sepsis Screen: Does the patient meet any 2 criteria? No. Patient's initial sepsis screen is negative. Does the patient have a suspected source of infection? No. Patient's initial sepsis screen is negative. Risk Assessment: Do you want to hurt yourself or someone else? Patient reports no desire to harm self or others. Onset of symptoms was December 31, 2024. 06:42 Method Of Arrival: Ambulatory al5 06:42 Acuity: ANDRIY 3 al5 Triage Assessment: 06:48 General: Appears uncomfortable, Behavior is calm, cooperative. Pain: Complains of pain al5 in right upper quadrant and left upper quadrant Pain radiates to back Pain currently is 10 out of 10 on a pain scale. Quality of pain is described as crampy. Neuro: Level of Consciousness is awake, alert, obeys commands, Oriented to person, place, time, situation. Cardiovascular: Capillary refill < 3 seconds Patient's skin is warm and dry. Respiratory: Reports Airway is patent Respiratory effort is even, unlabored, Respiratory pattern is regular, symmetrical. GI: Abdomen is round obese, Reports upper abdominal pain, cramping. : No signs and/or symptoms were reported regarding the genitourinary system. Derm: Skin is pink, warm \T\ dry. Musculoskeletal: Circulation, motion, and sensation intact. Range of motion: intact in all extremities. Historical: - Allergies: 06:48 No Known Allergies; al5 - Home Meds: 06:48 Trulicity subcutaneous [Active]; al5 - PMHx: 06:48 coronary atherosclerosis; diabetes mellitus; Hypertension; al5 - PSHx: 06:48 Coronary Angioplasty; hysterectomy; Stented artery; al5 - Immunization history:: Adult Immunizations up to date. - Infectious Disease History:: Denies. - Social history:: Smoking status: Patient denies any tobacco usage or history of. Screenin:[address] [facility] ED Fall Risk Assessment (Adult) History of falling in the last 3 months, br2 including since admission No falls in past 3 months (0 pts) Confusion or Disorientation No (0 pts) Intoxicated or Sedated No (0 pts) Impaired Gait No (0 pts) Mobility Assist Device Used No (0 pt) Altered Elimination No (0 pt) Score/Fall Risk Level 0 - 2 = Low Risk Oriented to surroundings. Abuse screen: Denies threats or abuse. Denies injuries from another. Nutritional screening: No deficits noted. Tuberculosis screening: No symptoms or risk factors identified. Assessment: 06:49 Reassessment: Patient and/or family updated on plan of care and expected duration. Pain br2 level reassessed. Patient is alert, oriented x 3, equal unlabored respirations, skin warm/dry/pink. General: Appears uncomfortable, Behavior is calm, cooperative. Pain: Complains of pain in abdomen Pain currently is 10 out of 10 on a pain scale. GI: Abdomen is round Bowel sounds present X 4 quads. Abdomen is tender to palpation X 4 quads. FIRM. 07:05 General: Appears in no apparent distress. comfortable, well groomed, well developed, kc6 Behavior is calm, cooperative, appropriate for age. Pain: Complains of pain in abdomen. Neuro: Level of Consciousness is awake, alert, obeys commands, Oriented to person, place, time, situation, Appropriate for age. Cardiovascular: Capillary refill < 3 seconds. Respiratory: Airway is patent Trachea midline Respiratory effort is even, unlabored, Respiratory pattern is regular, symmetrical. GI: Abdomen is round Last BM was December 30, 2024. Bowel sounds present X 4 quads. Abd is soft X 4 quads Abdomen is tender to palpation X 4 quads. Reports lower abdominal pain, upper abdominal pain, nausea, Patient currently denies constipation, diarrhea, vomiting. : No signs and/or symptoms were reported regarding the genitourinary system. Urine is cloudy. EENT: No signs and/or symptoms were reported regarding the EENT system. Derm: No signs and/or symptoms reported regarding the dermatologic system. Skin is intact, is healthy with good turgor, Skin is pink, warm \T\ dry. Musculoskeletal: No signs and/or symptoms reported regarding the musculoskeletal system. Circulation, motion, and sensation intact. Range of motion: intact in all extremities. 08:05 Reassessment: Patient appears in no apparent distress at this time. No changes from kc6 previously documented assessment. Patient and/or family updated on plan of care and expected duration. Pain level reassessed. Patient is alert, oriented x 3, equal unlabored respirations, skin warm/dry/pink. 09:05 Reassessment: Patient appears in no apparent distress at this time. No changes from kc6 previously documented assessment. Patient and/or family updated on plan of care and expected duration. Pain level reassessed. Patient is alert, oriented x 3, equal unlabored respirations, skin warm/dry/pink. 09:32 GI: Pt is actively vomiting clear fluid. kc6 10:05 Reassessment: Patient appears in no apparent distress at this time. No changes from kc6 previously documented assessment. Patient and/or family updated on plan of care and expected duration. Pain level reassessed. Patient is alert, oriented x 3, equal unlabored respirations, skin warm/dry/pink. Patient states feeling better. Patient states symptoms have improved. 11:06 Reassessment: Patient appears in no apparent distress at this time. No changes from kc6 previously documented assessment. Patient and/or family updated on plan of care and expected duration. Pain level reassessed. Patient is alert, oriented x 3, equal unlabored respirations, skin warm/dry/pink. pt to MRI via wheelchair. 12:20 Reassessment: Patient appears in no apparent distress at this time. No changes from kc6 previously documented assessment. Patient and/or family updated on plan of care and expected duration. Pain level reassessed. Patient is alert, oriented x 3, equal unlabored respirations, skin warm/dry/pink. 13:39 Reassessment: Patient appears in no apparent distress at this time. No changes from kc6 previously documented assessment. Patient and/or family updated on plan of care and expected duration. Pain level reassessed. Patient is alert, oriented x 3, equal unlabored respirations, skin warm/dry/pink. Vital Signs: 06:42 BP 122 / 68; Pulse 96; Resp 16 S; Temp 97.9(T); Pulse Ox 98% on R/A; Weight 81.65 kg; al5 Height 5 ft. 2 in. ; Pain 10/10; 08:38 BP 125 / 68; Pulse 69; Resp 16 S; Pulse Ox 96% on R/A; kc6 12:20 BP 119 / 67; Pulse 75; Resp 17 S; Pulse Ox 91% on R/A; kc6 13:39 BP 118 / 66; Pulse 80; Resp 16 S; Pulse Ox 98% on R/A; kc6 06:42 Body Mass Index 32.92 (81.65 kg, 157.48 cm) al5 06:42 Pain Scale: Adult al5 ED Course: 06:34 Patient arrived in ED. gm2 06:48 Triage completed. al5 06:49 Nita Jose, RN is Primary Nurse. br2 06:49 Patient has correct armband on for positive identification. Placed in gown. Bed in low br2 position. Call light in reach. Provided Education on: PLAN OF CARE. 06:49 Inserted saline lock: 20 gauge in left upper arm, using aseptic technique. br2 07:00 Arm band placed on. kc6 07:01 Napoleon Chen MD is Attending Physician. rt 07:03 CBC with Diff Sent. br2 07:03 CMP Sent. br2 07:03 Lipase Sent. br2 07:05 Patient has correct armband on for positive identification. Placed in gown. Bed in low kc6 position. Call light in reach. Side rails up X 1. Pulse ox on. NIBP on. Door closed. Noise minimized. Lights dimmed. Warm blanket given. Pillow given. Verbal reassurance given. 07:58 CT Abd/Pelvis - IV Contrast Only In Process Unspecified. EDMS 08:58 EKG done, by ED staff, reviewed by Napoleon Chen MD. kc6 09:34 US Abdomen Limited In Process Unspecified. EDMS 10:26 Yoan Vance MD is Hospitalizing Provider. rt 11:41 Cholangiogram In Process Unspecified. EDMS 16:17 No provider procedures requiring assistance completed. Patient admitted, IV remains in kc6 place. Administered Medications: 07:34 Drug: Ondansetron IVP 4 mg IVP once; over 2 minutes Route: IVP; Site: left antecubital; kc6 07:57 Follow up: Response: No adverse reaction kc6 07:34 Drug: morphine IVP or IV 4 mg IVP once over 4 mins Route: IVP; Infused Over: 4 mins; kc6 Site: left antecubital; 07:57 Follow up: Response: No adverse reaction kc6 09:24 Drug: NS 0.9% IV 1000 ml IV at 1000 ml once; to be given as a bolus over 60 minutes kc6 Route: IV; Rate: 1000 ml; Site: left antecubital; 13:39 Follow up: Response: No adverse reaction; IV Status: Completed infusion; IV Intake: kc6 1000ml 09:24 Drug: Piperacillin-Tazobactam IVPB 3.375 grams IVPB once over 60 mins; (mix in NS 100 kc6 mL) Route: IVPB; Infused Over: 60 mins; Site: left antecubital; 09:56 Follow up: Response: No adverse reaction; IV Status: Completed infusion; IV Intake: kc6 100ml 09:32 Drug: morphine IVP or IV 4 mg IVP once over 4 mins Route: IVP; Infused Over: 4 mins; kc6 Site: left antecubital; 09:56 Follow up: Response: No adverse reaction; Pain is decreased; RASS: Alert and Calm (0) kc6 09:32 Drug: Ondansetron IVP 4 mg IVP once; over 2 minutes Route: IVP; Site: left antecubital; kc6 09:56 Follow up: Response: No adverse reaction; Nausea is decreased; Vomiting decreased kc6 Medication: 06:49 VIS not applicable for this client. br2 Intake: 09:56 IV: 100ml; Total: 100ml. kc6 13:39 IV: 1000ml; Total: 1100ml. kc6 Outcome: 10:26 Decision to Hospitalize by Provider. rt 16:17 Admitted to Med/surg accompanied by nurse, family with patient, via wheelchair, room kc6 214, with chart, 16:17 Condition: good 16:17 Instructed on the need for admit, 16:17 Patient left the ED. kc6 Signatures: Dispatcher [employer] EDKaia Anders RN RN kc6 Napoleon Chen MD MD rt Siri Sanchez gm2 Britt Nathan RN RN al5 [place], Nita, RN RN br2
--- NOTE | 2024-12-31 11:38 | CON ---
Date of Consultation: 12/31/2024 Reason For Consultation: Abdominal pain. History Of Present Illness: The patient is a 64-year-old female presents to the emergency room with diffuse abdominal pain, localizing to the right upper quadrant, it started last night. She denies an y diarrhea or constipation. No blood in her stool. No dysuria, hematuria. No sore throat, runny no se, cough, headaches, or dizziness. No chest pain. No fever or chills. She states it is not relate d to food intake. She does, however, have nausea and has vomited since being in the hospital. No bl oating, belching, or heartburn. Review of Systems: Otherwise unremarkable. Past Medical History: Positive for coronary artery disease, diabetes, hypertension, hypercholesterol emia. Past Surgical History: Coronary angioplasty with stents, hysterectomy. Allergies: NO ALLERGIES. Social History: The patient denies smoking or drinking alcohol. Family History: Significant for diabetes, high blood pressure, high cholesterol, and heart attack. Physical Examination: Vital Signs: Stable. She is currently afebrile. General: She is awake, alert. Head and Neck: There is no evidence of icterus. No neck masses. No JVD. Throat clear. Neck is zhong pple. Chest: Clear. Heart: S1, S2. Abdomen: Soft, nondistended. Positive bowel sounds. Positive right upper quadrant tenderness with r ebound. No rigidity or guarding. Slight Arrieta sign. Extremities: Adequately perfused. Nontender. Neuro: Nonfocal. Laboratory Data: Reviewed. Her white count is 18.3 with a left shift. Chemistry reviewed. Lactic acid is 1.8. Troponin I is pending. Total bilirubin is 1.4. AST is 57, ALT is 96, alkaline phospha tase is 145. CT of the abdomen and pelvis reviewed, essentially shows acalculous cholecystitis with a normal size duct. Assessment: Acute acalculous cholecystitis with elevated liver function test, with a history of bettie nary artery disease with stent placement and angioplasty. Recommendation: We will see what the troponin I shows, but I will discuss with the medical team sammy swanson whether the patient needs cardiac clearance or not. As far as the acute cholecystitis is joe rned, we will treat her with antibiotics, pain management, and when she is medically cleared, we will proceed with laparoscopic cholecystectomy, possible open. The patient and family understand risks, benefits, and alternatives and agree to procedure. Please note that we will get an MRCP prior to doi ng the surgery to make sure there are no stones in the duct as her liver function test is elevated. EVELINA/LEOBARDO Voice ID: [id number] Report ID: [id number]
--- NOTE | 2024-12-31 12:24 | RAD REPORT ---
EXAMINATION: MR CHOLANGIOGRAM CLINICAL INDICATION: Female, 64 years old. Cholecystitis TECHNIQUE: Multiplanar, multisequence MR imaging of the abdomen without intravenous contrast, and wit h specific attention to the biliary system. Unless otherwise specified, incidental findings do not require dedicated imaging follow-up. 3D MIP reconstruction performed. COMPARISON: CT abdomen and pelvis and abdominal ultrasound of the same day FINDINGS: GALLBLADDER: No stones, again with mild wall prominence and pericystic fluid noted. No filling defect s. Fold seen at the fundus. BILE DUCTS: No biliary ductal dilatation. Common bile duct measures 3 mm in caliber. No filling defec ts along the bile ducts. Fluid-filled structure adjacent to the most distal CBD measuring 8 mm, favored to represent a small duodenal diverticulum, as it demonstrates a small air-fluid level. LIVER: Normal in size, contour, and signal without evidence of fatty infiltration or iron deposition. No focal lesion. PANCREAS: Normal signal. No mass, ductal dilation, or juan-pancreatic fluid. SPLEEN: Normal size. No focal lesion. ADRENALS: Normal; no mass. KIDNEYS: Normal size and contour. No hydronephrosis. LYMPH NODES: No lymphadenopathy. ADDITIONAL FINDINGS: None. IMPRESSION: Mild gallbladder wall prominence and pericystic fluid, concerning for acute cholecystitis. No evidence of gallstones or choledocholithiasis. No intrahepatic or extrahepatic biliary ductal dila tion.
[2024-12-31] MEDS ORDERED: ACETAMINOPHEN 325 MG TABLET PO PRN (12:54)
[2024-12-31] MEDS ORDERED: MORPHINE 2 MG/ML SYR IV PRN (13:04)
--- NOTE | 2024-12-31 13:10 | P.HP ---
Certification for Inpatient Patient admitted to: Observation With expected LOS: <2 Midnights Patient will require the following post-hospital care: None Practitioner: I am a practitioner with admitting privileges, knowledge of patient current condition, hospital course, and medical plan of care. Services: Services provided to patient in accordance with Admission requirements found in Title 42 Section 412.3 of the Code of Federal Regulations Patient History Date of Service: 12/31/24 Reason for admission: Acute cholecystitis History of Present Illness: Holly Leggett is a 64 year old female with Pmhx CAD s/p stent, HTN, hyperlipidemia, who presents to the ED with abdominal pain associated with nausea and vomitting that started this morning and is intermittent. She reports eating soup last night at 7 pm. She denies fever, chills, SOB, and Chest pain. Laboratory evaluation significant for WBC 18.3, sodium 135, serum glucose 154, T. bili 1.4, AST 57, ALT 96, alk phos 135. CT abdomen pelvis reports "Gallbladder wall thickening and pericholecystic fluid. Please correlate clinically for acute cholecystitis" Ultrasound abdomen reports "Findings concerning for acute cholecystitis. No evidence of gallstones. No intra or extrahepatic biliary ductal dilation." MRCP reports "Mild gallbladder wall prominence and pericystic fluid, concerning for acute cholecystitis. No evidence of gallstones or choledocholithiasis. No intrahepatic or extrahepatic biliary ductal dilation." Holly will be admitted to hospitalist service for acute cholecystitis. Allergies No Known Allergies Allergy (Unverified 09/28/17 18:15) Home Medications: Aspirin [Aspirin EC 81 MG] 81 mg PO DAILY 30 Days #30 tablet. 01/20/22 Atorvastatin Calcium [Lipitor] 40 mg PO BEDTIME 30 Days #30 tab 01/20/22 Clopidogrel Bisulfate [Plavix*] 75 mg PO DAILY 30 Days #30 tablet 01/20/22 Metoprolol Tartrate [Lopressor*] 0.5 tab PO BID 6AM 6PM 30 Days #30 tab 01/20/22 Metformin HCl [Glucophage] 500 mg PO DAILY WITH BREAKFAST 12/31/24 - Past Medical/Surgical History Diabetic: No -: HTN -: Obesity -: HLD -: CAD with stent -: Stent x1 - Family History Father -: Heart disease, Other (see notes) (Father of Heart Attack ) Mother -: Diabetes - Social History Smoking Status: Never smoker Alcohol use: No CD- Drugs: No Caffeine use: No Review of Systems Other: per HPI Physical Examination - Physical Exam General: Alert, In no apparent distress, Oriented x3 HEENT: Atraumatic, Normocephalic Neck: Supple, 2+ carotid pulse no bruit Respiratory: Clear to auscultation bilaterally, Normal air movement Cardiovascular: Normal pulses, Regular rate/rhythm, Normal S1 S2 Capillary refill: <2 Seconds Gastrointestinal: Soft and benign, Tenderness Musculoskeletal: No clubbing Integumentary: No rashes Neurological: Normal speech, Normal tone - Studies Laboratory Data (last 24 hrs) 12/31/24 12/31/24 12/31/24 09:15 07:04 07:04 WBC 18.30 H Hgb 14.7 Hct 42.8 Plt Count 329 PT 12.6 INR 1.11 APTT 31.3 Sodium 135 L Potassium 3.7 BUN 13 Creatinine 0.77 Glucose 154 H Total Bilirubin 1.4 H AST 57 H ALT 96 H Alkaline Phosphatase 145 H Lipase 31 Assessment and Plan - Plan Assessment and Plan Acute cholecystitis Elevated liver enzymes likely secondary to acute cholecystitis Abdominal pain associated with N/V -Dr. Cavanaugh consulted -CLD then NPO after midnight for surgery -Zosyn - T. bili 1.5, AST 57, ALT 96, alk phos 145 - Gentle IV fluids CAD with stent -continuous telemetry -cardiology for cardiac clearance- low cardiac risk -Denies cardiac symptoms, CP, SOB, palpitations -Continue aspirin and lipitor HTN/HLD -continue home medications DVT ppx SCD Full code LOS 24 hour OBS Discharge Plan: Home Plan to discharge in: 24 Hours - Advance Directives Does patient have a Living Will: No Does patient have a Durable POA for Healthcare: No
[2024-12-31 16:21] VITALS: BMI 32.9
--- NOTE | 2024-12-31 16:49 | P.CNS ---
Date of Consult: 12/31/24 Chief Complaint: Acute cholecystitis History of Present Illness: Patient with PMH of CAD, PCI RCA in 2021, moderate mid LAD disease, presented with abdominal pain, found to have cholecystitis and need clearance for surgery, patient stay active and denies chest pain, no SOB, no RIVERS, no palpitations, no syncope. Allergies No Known Allergies Allergy (Unverified 09/28/17 18:15) Home medications list reviewed: Yes Home Medications: Aspirin [Aspirin EC 81 MG] 81 mg PO DAILY 30 Days #30 tablet.dr 01/20/22 Atorvastatin Calcium [Lipitor] 40 mg PO BEDTIME 30 Days #30 tab 01/20/22 Clopidogrel Bisulfate [Plavix*] 75 mg PO DAILY 30 Days #30 tablet 01/20/22 Metoprolol Tartrate [Lopressor*] 0.5 tab PO BID 6AM 6PM 30 Days #30 tab 01/20/22 Metformin HCl [Glucophage] 500 mg PO DAILY WITH BREAKFAST 12/31/24 - Past Medical/Surgical History Diabetic: No -: HTN -: Obesity -: HLD -: CAD with stent -: Stent x1 - Family History Father Medical History: Heart disease, Other (see notes) (Father of Heart Attack ) Mother Medical History: Diabetes - Social History Alcohol use: No CD- Drugs: No Caffeine use: No Place of Residence: Home Review of Systems 10-point ROS is otherwise unremarkable Physical Examination General: Alert, In no apparent distress HEENT: Atraumatic, PERRLA, Mucous membr. moist/pink, EOMI, Sclerae nonicteric Neck: Supple, 2+ carotid pulse no bruit, No LAD, Without JVD or thyroid abnormality Respiratory: Clear to auscultation bilaterally, Normal air movement Cardiovascular: Regular rate/rhythm, Normal S1 S2 Gastrointestinal: Normal bowel sounds, No tenderness Musculoskeletal: No tenderness Integumentary: No rashes Neurological: Normal gait, Normal speech, Normal tone, Normal affect Lymphatics: No axilla or inguinal lymphadenopathy Laboratory Data (last 24 hrs) 12/31/24 12/31/24 12/31/24 09:15 07:04 07:04 WBC 18.30 H Hgb 14.7 Hct 42.8 Plt Count 329 PT 12.6 INR 1.11 APTT 31.3 Sodium 135 L Potassium 3.7 BUN 13 Creatinine 0.77 Glucose 154 H Total Bilirubin 1.4 H AST 57 H ALT 96 H Alkaline Phosphatase 145 H Lipase 31 - Problems (1) Preoperative clearance Current Visit: Yes Status: Acute Plan: Patient is not having any active cardiac symptoms, patient mention that she have seen cardiology in [facility] in july and she got a stress test that was normal patient is cleared as low cardiac risk for surgery need to continue ASA 81 mg daily (2) CAD (coronary artery disease) Current Visit: Yes Status: Acute Plan: history of RCA PCI, moderate LAD disease, mention she got a stress test last year and it was negative continue ASA 81 mg daily stop Plavix continue lipitor 40 mg daily (3) HLD (hyperlipidemia) Current Visit: Yes Status: Acute Plan: continue lipitor 40 mg daily (4) HTN (hypertension) Current Visit: Yes Status: Acute Plan: continue lopressor 12.5 mg po BID continue to monitor.
[2024-12-31] MEDS: NA CHLORIDE 0.9% 1,000 ML IV SCH (16:51)
[2024-12-31] MEDS: PIPER TAZO 3.375 GM in NA CHLORIDE 0.9% 100 ML IV SCH (16:53)
[2024-12-31] MEDS: ATORVASTATIN 40 MG TAB PO SCH (20:34)
[2025-01-01 05:42] LABS: Absolute Eosinophils 0.3 K/uL (0-0.5); Absolute Monocytes 0.8 K/uL (0.1-1.3); Absolute Neutrophil 7.2 K/uL (1.8-8.0); Basophils % 0.2 % (0-1.3); Eosinophils % 2.6 % (0-4.4); Hematocrit 37.5 % (36.0-45.0); Hemoglobin 13.2 g/dL (12.0-15.0); Lymphocytes % 19.3 % (15.3-44.8); MCH 31.3 pg (27.0-35.0); MCHC 35.2 g/dL (32.0-36.0); MCV 89.1 fL (80-100); MPV 9.2 fL (7.6-11.3); Monocytes % 7.9 % (3.3-12.3); Platelets 265 thou/uL (152-406); RBC Red Blood Cell Count 4.21 M/uL (3.86-4.86); Red Cell Distribution Width 13.1 % (12.1-15.2)
[2025-01-01] MEDS: METOPROLOL TAR 25 MG TAB PO SCH (05:54)
[2025-01-01 05:58] LABS: Albumin 2.8 g/dL (3.4-5.0); Albumin/Globulin Ratio 0.7 (1.1-1.8); Anion Gap 9.6 mEq/L (5.0-15.0); Globulin 4.1 g/dL (2.3-3.5); Magnesium 2.2 mg/dL (1.6-2.4); Phosphorus 2.9 mg/dL (2.5-4.9); Potassium 3.6 mEq/L (3.5-5.1); Protein, Total 6.9 g/dL (6.4-8.2)
[2025-01-01] MEDS: KCL 20 MEQ/100 mL IVPB 20 MEQ/100 ML BAG IV SCH (06:41)
[2025-01-01] MEDS: ASPIRIN EC 81 MG TAB PO SCH (08:35)
[2025-01-01] MEDS ORDERED: ONDANSETRON 4 MG/2 ML VIAL ONE (09:30)
[2025-01-01] MEDS ORDERED: dexAMETHasone 10 MG/ML VIAL ONE (09:30)
[2025-01-01] MEDS ORDERED: KETOROLAC 30 MG/ML INJ ONE (09:30)
[2025-01-01] MEDS ORDERED: MIDAZOLAM HCL 2 MG/2 ML INJ ONE (09:31)
[2025-01-01] MEDS ORDERED: ROCURONIUM 50 MG/5 ML VIAL IV ONE (09:31)
[2025-01-01] MEDS ORDERED: propofoL 200 MG/20 ML VIAL IV ONE (09:31)
[2025-01-01] MEDS ORDERED: LIDOCAINE 2% MPF 5 ML VIAL ONE (09:31)
[2025-01-01] MEDS ORDERED: FENTANYL CITR 100 MCG/2 ML ONE (09:31)
[2025-01-01] MEDS: BUPIVACAINE 0.5% PF 10 ML VIAL ONE (09:40)
[2025-01-01] MEDS: NA CHLORIDE 0.9% 1,000 ML ONE (11:12)
[2025-01-01] MEDS ORDERED: NEOSTIGMINE 1 MG/ML -10 ML VIAL ONE (11:34)
[2025-01-01] MEDS ORDERED: Mastisol Adhesive Liq ONE (11:34)
[2025-01-01] MEDS ORDERED: GLYCOPYRROLATE 0.2 MG/ML SYR ONE (11:34)
--- NOTE | 2025-01-01 11:42 | P.OP ---
Date of Service: 01/01/25 Preop diagnosis: Acute acalculous cholecystitis Postop diagnosis: Same Procedure performed: Laparoscopic cholecystectomy with ICG Surgeon: Stevie Cavanaugh MD Media Consultant Outside Sales: None Estimated blood loss: Minimal Specimen: Gallbladder Findings: As above Anesthesia: General Complications: None Drains: None Fluids and blood products: None applicable Disposition: Recovery room Operative note: Patient brought to the OR and placed in supine position. General anesthesia began. Patient prepped and draped in usual sterile fashion. Marcaine 0.5% infiltrated locally for postop pain control. 15 blade used to make a 1 cm supraumbilical midline incision. Subcutaneous tissue divided and bleeding controlled cautery. Fascia identified and divided. #1 Vicryl stay suture placed. Peritoneal cavity entered with sharp and blunt dissection. 12 mm trocar placed into the peritoneal cavity under direct vision. Pneumoperitoneum established. Three 5 mm trocars placed under direct vision. 1 trocar placed in the epigastric region just to the right of midline. 2 trocars placed in the right subcostal region. Laparoscopy revealed a distended gallbladder consistent with acute cholecystitis. The gallbladder aspirated of pus. Fundus retracted superiorly. Infundibulum identified and retracted inferolaterally. Cystic duct and cystic artery clearly identified with blunt dissection. ICG monitor utilized as needed. Clips placed in both structures divided. Cautery used to remove the gallbladder from the liver bed. Bleeding on the liver bed controlled with cautery. Gallbladder retrieved to the umbilicus via Endo Catch bag. Right upper quadrant irrigated and effluent clear. There was no evidence of bleeding or bile leakage appreciated. All trocars were removed under direct vision. Stay sutures were tied to each other to reapproximate the fascial defect. Subcutaneous wounds irrigated and bleeding controlled cautery. 3-0 chromic used to approximate subcutaneous tissue and close skin. Sterile dressing applied. Patient awakened and taken to recovery room in good general condition. CC:
--- NOTE | 2025-01-01 11:44 | EKG ---
Test Date: 2024-12-31 Test Time: 08:53:22 District Associate Judge: JERE MEASUREMENT RESULTS: Intervals: Rate: 71 [place]: 148 QRSD: 94 QT: 402 QTc: 436 Waldo: P: 49 [place]: 148 QRS: 48 T: 47 INTERPRETIVE STATEMENTS: Normal sinus rhythm Cannot rule out Anterior infarct, age undetermined Abnormal ECG Compared to ECG 04/09/2024 19:38:57 Myocardial infarct finding now present Electronically Signed On 01-01-25 11:40:33 CDT by Hugo Walker
[2025-01-01] MEDS ORDERED: ONDANSETRON 4 MG/2 ML VIAL IV PRN (12:04)
[2025-01-01] MEDS ORDERED: HYDROMORPHONE HCL 1 MG/ML INJ IV PRN (12:04)
[2025-01-01] MEDS: HYDROMORPHONE HCL 1 MG/ML INJ ONE (12:25)
--- NOTE | 2025-01-01 18:47 | P.PN ---
Date of Service: 01/01/25 Subjective On morning rounds she reports Feeling well, awaiting surgery S/P surgery she is able to ambulate in the hallway will monitor overnight and advance diet as tolerated ROS 10 point ROS as noted above, otherwise negative Physical Exam General: Alert and Oriented x3, NAD HEENT: Atraumatic, Normocephalic Neck: Supple, 2+ carotid pulse no bruit Respiratory: Clear BBS, Normal air movement, on RA Cardiovascular: Normal pulses, Regular rate/rhythm, Normal S1 S2 Capillary refill: <2 Seconds Gastrointestinal: Soft and Tenderness on palpation Musculoskeletal: No clubbing Integumentary: No rashes Neurological: Normal speech, Normal tone Vitals Reviewed Problem list Acute cholecystitis s/p laparoscopic cholecystectomy with ICG Elevated liver enzymes likely secondary to acute cholecystitis Abdominal pain associated with N/V CAD with stent HTN/HLD Assessment and Plan Acute cholecystitis s/p laparoscopic cholecystectomy with ICG Elevated liver enzymes likely secondary to acute cholecystitis Abdominal pain associated with N/V -Dr. Cavanaugh consulted -CLD, will advance as tolerated -Zosyn - T. bili 1.0, AST 100 , ALT 159, alk phos 144- continue to monitor - Gentle IV fluids CAD with stent -continuous telemetry -cardiology for cardiac clearance- low cardiac risk -Denies cardiac symptoms, CP, SOB, palpitations -Continue aspirin and lipitor HTN/HLD -continue home medications DVT ppx SCD Full code LOS 24 hour OBS Discharge Plan: Home Plan to discharge in: 24 Hours
[2025-01-01] MEDS: HYDROCODONE/APAP 7.5/325 MG TAB PO PRN (20:35)
[2025-01-02 07:21] LABS: Albumin 2.6 g/dL (3.4-5.0); Albumin/Globulin Ratio 0.7 (1.1-1.8); Anion Gap 11.7 mEq/L (5.0-15.0); Bilirubin Total 0.5 mg/dL (0.2-1.0); Globulin 3.9 g/dL (2.3-3.5); Magnesium 2.1 mg/dL (1.6-2.4); Phosphorus 2.9 mg/dL (2.5-4.9); Potassium 3.7 mEq/L (3.5-5.1); Protein, Total 6.5 g/dL (6.4-8.2)
[2025-01-02 07:23] LABS: Absolute Lymphocytes (CBC) 2.5 K/uL (0.7-4.9); Absolute Monocytes 0.9 K/uL (0.1-1.3); Absolute Neutrophil 10.6 K/uL (1.8-8.0); Basophils % 0.3 % (0-1.3); Eosinophils % 0.2 % (0-4.4); Hematocrit 33.7 % (36.0-45.0); Hemoglobin 11.9 g/dL (12.0-15.0); Lymphocytes % 17.9 % (15.3-44.8); MCH 31.1 pg (27.0-35.0); MCHC 35.4 g/dL (32.0-36.0); MCV 87.7 fL (80-100); MPV 9.5 fL (7.6-11.3); Monocytes % 6.2 % (3.3-12.3); Neutrophils % 75.4 % (41.7-73.7); Nucleated Red Blood Cells % 0.1 % (0-0); Platelets 293 thou/uL (152-406); RBC Red Blood Cell Count 3.84 M/uL (3.86-4.86)
[2025-01-02 09:04] VITALS: O2SAT 94
--- NOTE | 2025-01-02 10:44 | PN ---
Date of Progress Note: 01/02/2025 Subjective: The patient is awake, alert. No complaint. Objective: Vital Signs: Stable. Afebrile. Laboratory Data: Reviewed. Her white count is 14.1 with a left shift. Her chemistry shows the AST and ALT to be slightly increased. Her total bilirubin and alkaline phosphatase are normal. She is tolerating diet. Her abdomen is benign. Assessment: Status post laparoscopic cholecystectomy. Recommendation: Clinically, patient looks good. The patient can be discharged home on oral antibiot ics when she is cleared by the medical team and follow up with me in a week. Discharge instructions given in detail and antibiotics and pain medications per the hospitalist team. We will repeat the LF Ts as an outpatient. EVELINA/MODL Voice ID: [id number] Report ID: [id number]
--- NOTE | 2025-01-02 10:50 | P.DS ---
Admission Date: 01/02/25 Discharge Date: 01/02/25 Disposition: ROUTINE DISCHARGE Discharge Condition: GOOD Reason for Admission: Acute cholecystitis Brief History of Present Illness: Diagnosis Acute cholecystitis s/p laparoscopic cholecystectomy with ICG Elevated liver enzymes likely secondary to acute cholecystitis Abdominal pain associated with N/V CAD with stent HTN/HLD [facility] 12/31/2024 Holly Leggett is a 64 year old female with Pmhx CAD s/p stent, HTN, hyperlipidemia, who presents to the ED with abdominal pain associated with nausea and vomitting that started this morning and is intermittent. She reports eating soup last night at 7 pm. She denies fever, chills, SOB, and Chest pain. Laboratory evaluation significant for WBC 18.3, sodium 135, serum glucose 154, T. bili 1.4, AST 57, ALT 96, alk phos 135. CT abdomen pelvis reports "Gallbladder wall thickening and pericholecystic fluid. Please correlate clinically for acute cholecystitis" Ultrasound abdomen reports "Findings concerning for acute cholecystitis. No evidence of gallstones. No intra or extrahepatic biliary ductal dilation." MRCP reports "Mild gallbladder wall prominence and pericystic fluid, concerning for acute cholecystitis. No evidence of gallstones or choledocholithiasis. No intrahepatic or extrahepatic biliary ductal dilation." Holly will be admitted to hospitalist service for acute cholecystitis. Hospital Course: Acute cholecystitis s/p laparoscopic cholecystectomy with ICG Elevated liver enzymes likely secondary to acute cholecystitis Abdominal pain associated with N/V Patient was seen by Dr. Cavanaugh, Laparoscopic cholecystectomy with ICG on 01/01/25 S/P surgery, she has tolerated diet advancement and ambulated in the hallway Tolerated prophylactic Zosyn Monitored liver enzymes, remained elevated 2/[address] Cavanaugh has cleared CAD with stent Remained on continuous telemetry Patient was seen by cardiology for cardiac clearance as a low cardiac risk Patient denies cardiac symptoms, CP, SOB, palpitations Continued aspirin and lipitor HTN/HLD continued home medications On 01/02/25, Holly was seen on morning rounds hemodynamcially stable. Dr. Cavanaugh has evaluated and cleared for discharge with expected follow up outpatient. She has tolerated PO intake and ambulating independently. Augmentin and norco prescribed. Physical Exam General: AAOx3, NAD Respiratory: Clear BBS, nonlabored breathing, on RA Cardiovascular: RRR, Normal S1 S2, no murmur noted Capillary refill: <2 Seconds Gastrointestinal: Soft on palpation, surgical incisions well-approximated, no drainage noted Musculoskeletal: No clubbing Integumentary: No rashes Neurological: Normal speech, Normal tone Vital Signs/Physical Exam: Temp Pulse Resp BP Pulse Ox 97.9 F 63 12 110/57 L 96 01/02/25 08:00 01/02/25 08:00 01/02/25 08:00 01/02/25 08:00 01/02/25 08:00 Laboratory Data at Discharge: WBC 14.10 thou/uL (4.3-10.9) H 01/02/25 06:35 Hgb 11.9 g/dL (12.0-15.0) L D 01/02/25 06:35 Hct 33.7 % (36.0-45.0) L 01/02/25 06:35 Plt Count 293 thou/uL (152-406) 01/02/25 06:35 PT 12.6 SECONDS (10-13.0) 12/31/24 09:15 INR 1.11 12/31/24 09:15 APTT 31.3 SECONDS (27.2-37.4) 12/31/24 09:15 Sodium 143 mEq/L (136-145) 01/02/25 06:35 Potassium 3.7 mEq/L (3.5-5.1) 01/02/25 06:35 BUN 7 mg/dL (7-18) 01/02/25 06:35 Creatinine 0.61 mg/dL (0.55-1.02) 01/02/25 06:35 Glucose 103 mg/dL (74-106) 01/02/25 06:35 Phosphorus 2.9 mg/dL (2.5-4.9) 01/02/25 06:35 Magnesium 2.1 mg/dL (1.6-2.4) 01/02/25 06:35 Total Bilirubin 0.5 mg/dL (0.2-1.0) 01/02/25 06:35 AST 172 U/L (15-37) H 01/02/25 06:35 ALT 207 U/L (13-56) H 01/02/25 06:35 Alkaline Phosphatase 130 U/L (45-117) H 01/02/25 06:35 Lipase 31 U/L (13-75) 12/31/24 07:04 Home Medications: Aspirin [Aspirin EC 81 MG] 81 mg PO DAILY 30 Days #30 tablet.dr 01/20/22 Atorvastatin Calcium [Lipitor] 40 mg PO BEDTIME 30 Days #30 tab 01/20/22 Clopidogrel Bisulfate [Plavix*] 75 mg PO DAILY 30 Days #30 tablet 01/20/22 Metoprolol Tartrate [Lopressor*] 0.5 tab PO BID 6AM 6PM 30 Days #30 tab 01/20/22 Metformin HCl [Glucophage] 500 mg PO DAILY WITH BREAKFAST 12/31/24 Amox/Clavulanate [Augmentin 875-125 Tab] 875 mg PO BID 7 Days #14 tab 01/02/25 Hydrocodone 5/APAP 325 [[place] 5/325*] 1 tab PO Q6H PRN #15 tab 01/02/25 New Medications: Amox/Clavulanate [Augmentin 875-125 Tab] 875 mg PO BID 7 Days #14 tab Hydrocodone 5/APAP 325 [[place] 5/325*] 1 tab PO Q6H PRN #15 tab PRN Reason: Pain Physician Discharge Instructions: 1. Please call and schedule a follow-up appointment with your PCP in 3-5 days - Please follow-up with your PCP for medication refills/adjustments 2. Please call and schedule a follow-up appointment with Dr. Cavanaugh in 3-5 days -Dr. Cavanaugh has left instructions below 3. Continue soft GI diet 4. No activity restrictions 5. Return to the ED if symptoms worsen New medications Augmentin 875 mg twice daily for 7 days [place] 5 mg every 6 hours as needed for pain x 15 doses May shower in a.m. Remove outer dressing after shower Keep Steri-Strips on at all times Incentive spirometry as instructed Resume home meds and diet Follow-up my office 1 week, call for appointment Antibiotics and pain medicine per the hospitalist team We will repeat LFTs as an outpatient Patient may fly in 1 week Diet: Low sodium Activity: No lifting more than 10 lbs Followup: Hoang Trujillo DO [Primary Care Provider] - If your Condition Changes Stevie Cavanaugh MD [ACTIVE - CAN ADMIT] - 1 Week
[2025-01-02 11:22] LABS: Platelet Estimate ADEQ; Platelets Clumped FIBRIN PRESENT; White Blood Cell Scan OK (OK)
[2025-01-02 11:23] LABS: Blood Morphology Comment NOT SEEN (NOT SEEN); Platelets, Giant FEW
[2025-01-02 13:21] VITALS: BP 112/59; TEMP 98.1
== END 2025-01-02 13:47 | disposition home or self-care (01) | DRG 419 ==
LOC: ER 06:28 → ERHOLD 12:54 → 2ND 13:20 → OBSVTOIN 01-02 08:03
PROVIDERS: ADMIT Hospitalist; ATTEND Hospitalist
PROC: BF52200 Other Imaging of Gallbladder using Fluorescing Agent, Indocyanine Green Dye, Intraoperative (ICD-10-PCS; 2025-01-01)
PROC: 0FT44ZZ Resection of Gallbladder, Percutaneous Endoscopic Approach (ICD-10-PCS; principal; 2025-01-01 09:30)
DX: K81.0 Acute cholecystitis (principal); E11.9 Type 2 diabetes mellitus without complications; I10 Essential (primary) hypertension; E78.5 Hyperlipidemia, unspecified; E66.9 Obesity, unspecified; I25.10 Atherosclerotic heart disease of native coronary artery without angina pectoris; Z95.1 Presence of aortocoronary bypass graft; Z90.710 Acquired absence of both cervix and uterus; Z95.5 Presence of coronary angioplasty implant and graft; Z79.82 Long term (current) use of aspirin; Z79.02 Long term (current) use of antithrombotics/antiplatelets; Z79.84 Long term (current) use of oral hypoglycemic drugs; Z79.899 Other long term (current) drug therapy; Z68.32 Body mass index [BMI] 32.0-32.9, adult
CPT/HCPCS: 36415; 74177; 74181; 76705; 80053; 81001; 82947; 83605; 83690; 83735; 84100; 84484; 85025; 85610; 85730; 87040; 88304; 93005; 94010; 96361; 96365; 96375; 99285; G0378; J1100; J1171; J2003; J2250; J2405; J2543; J2704; J2710; J3010; J3480; J7030; Q9967